=== PATIENT | female | born 1965 | race Caucasian/White ===

== ENCOUNTER 2019-08-05 11:09 | Outpatient (CLI) | payer OTHER, SELFPAY ==
--- NOTE | ~2019-08-05 | US_ITS ---
EXAMINATION: US right upper quadrant EXAM DATE: 08/05/2019 11:34 INDICATION: Right upper quadrant pain. TECHNIQUE: Multiple grayscale and Doppler images of the abdomen right upper quadrant were obtained (b y a technologist who performed the scan) and subsequently reviewed. Comparison is made to prior exami nation from 03/17/2013. FINDINGS: The pancreatic head and body are normal in appearance. The pancreatic tail is not visualized. The l iver has normal echogenicity and contour. There are no focal liver lesions identified. There is no evidence of intrahepatic biliary duct dilation. Portal venous flow was seen in the hepatopedal, nor mal direction and has normal Doppler waveform. No right-sided hydronephrosis. Common bile duct measures 7 mm, which minimally dilated. The gallbladder wall is normal in thickness, with expected amount of distention. No sonographic evidence of pericholecystic fluid. There is no cholelithiases. Technologist performing exam reports patient did not demonstrate sonographic Zhang's sign. Please note that this sign is less reliable in patients who have received pain medication. IMPRESSION: 1. Minimally dilated common bile duct without cholelithiasis or choledocholithiasis identified.. Reviewed, dictated and finalized at location A. IMPRESSION: 1. Minimally dilated common bile duct without cholelithiasis or choledocholith iasis identified..
== END 2019-08-05 11:10 | disposition home or self-care (01) ==
PROVIDERS: PCP Family Medicine; Visit Provider Family Medicine
DX: R10.11 Right upper quadrant pain (principal)
CPT/HCPCS: 76705

== ENCOUNTER 2020-02-05 18:48 | Emergency (ER) | payer OTHER, SELFPAY ==
--- NOTE | ~2020-02-05 | XR_ITS ---
EXAMINATION: XR tibia fibula LT 2V DATE: 02/05/2020 19:52 INDICATION: Left lower leg pain. TECHNIQUE: 2 views of left tibia and fibula were obtained. COMPARISON: None. FINDINGS: There is varus angulation at the knee. There are changes of anterior cruciate ligament alexis nstruction. No fracture. There is moderate left knee osteoarthritis. IMPRESSION: 1. Moderate left knee osteoarthritis. Reviewed, dictated and finalized at location A.
--- NOTE | ~2020-02-05 | XR_ITS ---
EXAMINATION: XR knee LT min 4V DATE: 02/05/2020 19:51 INDICATION: Left leg pain. TECHNIQUE: 4 views of left knee were obtained. COMPARISON: None. FINDINGS: Bone alignment is normal. No fracture. There are changes of anterior cruciate ligament alexis nstruction. There is moderate osteoarthritis of medial compartment and mild osteoarthritis of lateral and patellofemoral compartments. No knee joint effusion. IMPRESSION: 1. Moderate left knee osteoarthritis. Reviewed, dictated and finalized at location A.
[2020-02-05 18:49] VITALS: BP 131/68; PULSE 87; RESP 17; TEMP 36.7; O2SAT 100
--- NOTE | 2020-02-05 19:03 | ED.LOWEXIN ---
HPI - Extremity Injury (Lower) General Chief Complaint: Extremity Injury, Lower Stated Complaint: r/o dvt Time Seen by Provider: 02/05/20 19:03 Source: patient Mode of arrival: ambulatory Limitations: no limitations History of Present Illness HPI Narrative: Patient is a 54-year-old female who presents for evaluation of left leg pain. Patient reports a 6-week history of worsening left leg pain, versus intermittent in nature in the back of her left calf, now has become chronic. Patient states she feels as if she is having daily cramping and charley horse type pain. She denies fall or injury. No redness or swelling. No history of blood clot. No recent long car or air travel. She denies fever, chest pain, shortness of breath. She denies history of cancer or coagulopathy. Patient was referred to this emergency department by her primary care physician for an ultrasound. Related Data Home Medications Medication Instructions Recorded Confirmed aripiprazole mg 02/05/20 02/05/20 escitalopram oxalate mg 02/05/20 lamotrigine 02/05/20 Allergies Allergy/AdvReac Type Severity Reaction Status Date / Time No Known Allergies Allergy Verified 02/05/20 18:48 Review of Systems Review of Systems: Narrative: CONSTITUTIONAL: Denies fever, chills, or sweats. ENT: Denies rhinorrhea, congestion, sore throat, or otalgia. CARDIOVASCULAR: Denies chest pain, palpitations, or edema. RESPIRATORY: Denies cough or dyspnea. GASTROINTESTINAL: Denies abdominal pain, nausea, vomiting, or diarrhea. GENITOURINARY: Denies dysuria or hematuria. SKIN: Denies rash or itching. MUSCULOSKELETAL: Denies back pain, joint pain, reports left leg pain NEUROLOGIC: Denies headache, numbness, or weakness. [facility] Past Medical History Medical History Hyperlipidemia Social History Social History (Updated 02/05/20 @ 19:33 by Aury Naylor MD) Smoking status: Never smoker Alcohol intake: current Alcohol use details: social Substance use: current Gender identity (if verbalized by the patient): Female Exam Narrative: Exam Narrative: GENERAL: Awake, alert, conversant HEAD: Normocephalic, atraumatic. EYES: PERRLA and EOMI. ENT: Nares clear, no rhinorrhea or epistaxis. Mucous membranes moist. NECK: Supple. CHEST: No respiratory distress, breathing even and non labored HEART: Regular rate, sinus rhythm ABDOMEN:Non distended, non tender EXTREMITIES: Normal range of motion. No edema. Tenderness to palpation of the left calf. No edema, erythema or warmth. Full range of motion of the left knee and left ankle without limitation. Intact distal sensation. Compartment is soft. No deformity. SKIN: Warm, dry, no rash. NEURO:No focal deficits. Alert and oriented x3 Course Vital Signs Vital signs: Vital Signs Temperature 36.7 C 02/05/20 18:49 Pulse Rate 87 02/05/20 18:49 Respiratory Rate 17 02/05/20 18:49 Blood Pressure 131/68 02/05/20 18:49 Pulse Oximetry 100 02/05/20 18:49 Temperature 36.2 C L 02/05/20 20:46 Pulse Rate 76 02/05/20 20:46 Respiratory Rate 16 02/05/20 20:46 Blood Pressure 129/74 02/05/20 20:46 Pulse Oximetry 100 02/05/20 20:46 MDM - Extremity Injury (Lower) MDM Narrative Medical decision making narrative: Patient is a 54-year-old that presenting for evaluation of left calf pain over the past month. At the time of assessment, patient is neurovascularly intact, pain is reproducible with palpation of the left calf. No mass felt. No evidence of cellulitis. No edema or erythema. No evidence of deformity. Full range of motion in the knee and ankle. Obtained blood work which is reassuring, no elevation in d-dimer that be suggestive of a DVT. It seems more musculoskeletal in etiology, I do feel that patient should have a ultrasound, thus we will schedule for the morning. After shared decision-making occurred, patient opted for no anticoagul
[2020-02-05 19:45] LABS: Basophils Absolute Auto 0.1 K/mm3 (0.0-0.1); Basophils Percent Auto 1.2 % (0.2-1.2); Eosinophils Absolute Auto 0.2 K/mm3 (0-0.3); Eosinophils Percent Auto 3.2 % (0-4.4); Hematocrit 42.1 % (37.0-47.0); Immature Granulocyte Absolute 0.01 K/mm3 (0.00-0.031); Immature Granulocyte Percent A 0.2 % (0-0.5); Lymphocytes Absolute Auto 1.81 K/mm3 (0.9-3.2); Lymphocytes Percent Auto 36.3 % (18.3-44.2); Mean Corpuscular HGB Conc 33.3 g/dl (32-36); Mean Corpuscular Volume 93.3 fl (80-100); Mean Platelet Volume 10.8 fl (7.4-10.4); Monocytes Absolute Auto 0.4 K/mm3 (0.1-0.6); Monocytes Percent Auto 7.4 % (2.6-8.5); Neutrophils Absolute Auto 2.6 K/mm3 (1.3-6.7); Neutrophils Percent Auto 51.7 % (45.5-73.1); Platelet Count Result 190 k/mm3 (150-375); Red Blood Count 4.51 M/mm3 (4.2-5.4); Red Cell Distribution Width 12.5 % (11.5-14.5)
[2020-02-05 19:57] LABS: Anion Gap 7 mmol/L (8-16); Blood Urea Nitrogen 12 mg/dL (7-17); Calcium 9.5 mg/dL (8.4-10.2); Carbon Dioxide 26 mmol/L (22-30); Chloride 105 mmol/L (98-107); Estimated CRCL calculation 72 ml/min; Estimated Glomerular Filt Rate > 60; Glucose 105 mg/dL (65-105); Potassium 3.9 mmol/L (3.4-5.0); Prothrombin Time 12.6 Seconds (11.1-14.7); Sodium 138 mmol/L (137-145)
[2020-02-05 19:58] LABS: Partial Thromboplastin Time 30.9 SECONDS (22.3-36.8)
[2020-02-05 20:01] LABS: D Dimer 0.34 ug/mL (<0.48)
[2020-02-05 20:46] VITALS: BP 129/74; PULSE 76; RESP 16; TEMP 36.2; O2SAT 100
== END 2020-02-05 20:48 | disposition home or self-care (01) ==
PROVIDERS: Emergency Provider Emergency Medicine; PCP Family Medicine
DX: M79.605 Pain in left leg (principal); E78.5 Hyperlipidemia, unspecified
CPT/HCPCS: 36415; 73564; 73590; 80048; 85025; 85380; 85610; 85730; 97110; 97140; 99284

== ENCOUNTER 2020-02-06 07:45 | Outpatient (CLI) | payer OTHER, SELFPAY ==
--- NOTE | ~2020-02-06 | US_ITS ---
EXAMINATION:US venous doppler LE LT INDICATION:Left calf pain TECHNIQUE: Multiple grayscale, color flow and Doppler images of the left lower extremity deep venous systems were obtained and reviewed. COMPARISON:No prior studies for comparison. FINDINGS: The common femoral, superficial femoral and popliteal veins demonstrate normal respiratory variation, augmentation and compressibility. Color flow is also seen within the posterior tibial, pe roneal, greater saphenous and profunda veins. IMPRESSION: 1: No lower extremity deep venous thrombosis. Reviewed, dictated and finalized at location B.
== END 2020-02-06 07:46 | disposition home or self-care (01) ==
LOC: ANHIMG 07:46
PROVIDERS: Visit Provider Family Medicine
DX: M79.662 Pain in left lower leg (principal)
CPT/HCPCS: 93971

== ENCOUNTER 2020-03-10 16:00 | Outpatient (RCR) | payer OTHER, SELFPAY ==
--- NOTE | 2020-01-28 08:55 | PTOPEVAL ---
PHYSICAL THERAPY EVALUATION AND PLAN OF CARE Thank you for referring Genna Rodriguez to [facility].? The patient is scheduled to be seen for therapy? 2x/week for 4 weeks. Please review, sign, date and return this plan of care SCOTTY. I agree with and certify that the following plan of care is medically necessary. Referring Physician Date Attending Provider: Brooke Go, MD Evaluation Outpatient Past Medical History Musculoskeletal History Hx Other Musculoskeletal Disorders Yes: left ACL reconstruction x2, menisectomy Other History Hx Other Surgeries Yes: lyme disease Diagnosis left knee pain, right hip/ groin pain Cause insidious Subjective Information Had left knee surgery (2006: Query Text:As Reported By Patient/ ACL and meniscal repair, 2010: Family ACL resconstruction and menisectomy) and states that the left LE never fully recovered stating that the muscle continues to be atrophied. She feels as though she cannot exercise well because of pain and fatige of left leg. Would like to be able to use the elliptical or boot camp type classes. She really enjoys dancing and feels limited in dancing. Has right hip/groin pain for ~ 1 year. She did therapy about 4-5 months ago that did not feel very helpful but the pain has subsided alot. She is seeing an orthopedic physician in February for right hip. Since she did therapy before without success, Genna is concerned that doing therapy now will aggravate the hip; therefore, she would like to hold on hip treatment until she meets with orthopedic physician. Left Knee(s) Reported Pain Level 3 Pain Description Aching Pain Frequency Chronic,Intermittent Lowest Pain Intensity 2 Greatest Pain Intensity 7 Pain Aggravating Factors Prolonged Position,Sitting, Stair Climbing,Walking Pain Score Pain Score 3: Self Report Lower Extremity Range of Motion Knee Range o
--- NOTE | 2020-02-25 13:14 | PTOPEVAL ---
PHYSICAL THERAPY PLAN OF CARE UPDATE AND PROGRESS REPORT Thank you for referring Genna Rodriguez to [facility].? The patient is scheduled to be seen for therapy? 2x/week for 2-4 weeks. Please review, sign, date and return this plan of care SCOTTY. I agree with and certify that the following plan of care is medically necessary. Referring Physician Date Attending Provider: Brooke Go, MD Progress Diagnosis left knee pain, right hip/ groin pain Cause insidious Subjective Information Reports that pain overall has Query Text:As Reported By Patient/ been up and down depending on Family activity level. There has been some progress in building some strength. Self Report Pain Assessment Left Knee(s) Reported Pain Level 2 Pain Frequency Chronic,Intermittent Pain Aggravating Factors Sitting,Stair Climbing,Walking Knee Range of Motion Left Knee Flexion Range of Motion - Active 135 Knee Extension Range of Motion - Active -11 Hip Strength Right Hip Flexion Strength 5 Normal Hip Extension Strength 4+ Good + Hip Abduction Strength 4+ Good + Left Hip Flexion Strength 5 Normal Hip Extension Strength 4- Good - Hip Abduction Strength 4- Good - Knee Strength Right Knee Flexion Strength 5 Normal Knee Extension Strength 5 Normal Left Knee Flexion Strength 4+ Good + Knee Extension Strength 4+ Good + Timed Up and Go Test (TUG) (Seconds) 9 Assistive Devices None 5 Time Sit to Stand Time in Seconds 17.2 5 Time Sit to Stand Comments 1 month ago = 22seconds Query Text:Normative Data: If Greater Than 15 Seconds, 74% Increase Risk for Recurrent Falls Gait Assessment 2 Minute Walk Total Distance Walked (feet) 454 2 Minute Walk Gait Speed Score (feet/ 3.78 second) 2 Minute Walk Test Comments 1month ago = 429ft reports increased symptoms from a 2/10 to a 3/10 in left knee Stair Climbing Assessment Stair Climbing Assessment Stair Climbing Assistive Devices None Number of Steps Climbed (Steps) 4 Number of Repetitions (Repetitions) 1 Technique Alternating Steps Stair Climbing Direction Both Up and Down Stair Climbing Ability Independent Stair Climbing Comments poor eccentric control on left side PT Clinical Summary Genna is a 54 yo female presenting to outpatient physical therapy for chronic left knee pain and leg weakness. Genna crispin
--- NOTE | 2020-03-01 11:35 | PCPTNOTE ---
Patient called & cancelled at 11:20 (appointment start time at 11:00) stating that she was not able to attend her appointment because she was with a family member in the hospital. She will be at her appointment no Sunday, 03/03.
--- NOTE | 2020-03-10 16:41 | PTOPEVAL ---
PHYSICAL THERAPY PLAN OF CARE UPDATE AND PROGRESS REPORT Thank you for referring Genna Rodriguez to [facility].? The patient is scheduled to be seen for therapy? 2x/week for 3 weeks. Please review, sign, date and return this plan of care SCOTTY. I agree with and certify that the following plan of care is medically necessary. Referring Physician Date Attending Provider: Brooke Go, Progress Diagnosis left knee pain, right hip/ groin pain Cause insidious Subjective Information Continues to have pain in the Query Text:As Reported By Patient/ left knee. States that her Family exercises are going well, but this last week she did not do them every day. Self Report Pain Assessment Left Knee(s) Reported Pain Level 2 Pain Description Aching Pain Score Pain Score 2: Self Report Additional Pain Score Comments . Interventions Used Interventions Used By Clinicians Exercise Lower Extremity Muscle Strength Testing Hip Strength Right Hip Flexion Strength 5 Normal Hip Extension Strength 4+ Good + Hip Abduction Strength 4+ Good + Left Hip Flexion Strength 5 Normal Hip Extension Strength 4- Good - Hip Abduction Strength 4 Good Knee Strength Right Knee Flexion Strength 5 Normal Knee Extension Strength 5 Normal Left Knee Flexion Strength 5 Normal Knee Extension Strength 4+ Good + Knee Strength Comments painful in knee with extension MMT Balance Assessment 5 Time Sit to Stand Time in Seconds 11.3 5 Time Sit to Stand Comments 2 weeks ago: 17.2seconds Query Text:Normative Data: If Greater 6 weeks ago= 22seconds Than 15 Seconds, 74% Increase Risk for Recurrent Falls Stair Climbing Assessment Stair Climbing Assessment Stair Climbing Assistive Devices None Number of Steps Climbed (Steps) 4 Number of Repetitions (Repetitions) 1 Technique Alternating Steps Stair Climbing Direction Both Up and Down Stair Climbing Ability Independent Stair Climbing Comments improved eccentric control of left quad General Exercise General Exercises Side Left,Bilateral Exercise Location knee Exercise Type Active,Resistive,Stabilization ,Stretching Exercise Description -leg press B = 100#x15 seat at Query Text:Record Sets, Reps, 4, unilateral left 50#x15 Resistance, and Position -single leg heel raises x20- with bilateral UE touch
--- NOTE | 2020-03-16 15:16 | PCPTNOTE ---
PHYSICAL THERAPY DISCHARGE NOTE Attending Provider: Brooke Go, Patient:Genna Rodriguez Date of :1965 Genna called to discontinue further therapy at this time due to her own schedule. She participated in 12 visits of physical therapy for left knee pain. Her most recent care update was completed on 03/10/2020. She will be discharged at this time. The goals were partially met. Thank you for referring this patient to [facility]. Please review, sign, date and return this discharge summary SCOTTY. I have been updated about the patient's current status and I agree with discharge from the above service at this time. Referring Physician Date
== END 2020-04-12 10:51 | disposition home or self-care (01) ==
LOC: ANHPT 16:00
PROVIDERS: PCP Family Medicine; Visit Provider Family Medicine
DX: M79.10 Myalgia, unspecified site (principal)
CPT/HCPCS: 97014; 97110; 97140; 97161; G0283

== ENCOUNTER 2020-09-20 09:21 | Outpatient (CLI) | payer OTHER, SELFPAY ==
--- NOTE | ~2020-09-20 | US_ITS ---
US abdomen limited INDICATION: Right upper quadrant pain PROCEDURE: Realtime right upper abdominal ultrasound. COMPARISON: No prior studies for comparison. FINDINGS: The pancreas is normal without focal mass or pancreatic ductal dilation. Liver echotexture is normal without focal mass or intrahepatic biliary dilatation. There is normal directional flow i n the portal vein. The gallbladder is normal without stones, gallbladder wall thickening or pericholecystic fluid. Comm on bile duct measures 3 mm. No sonographic Zhang's sign. Right renal echotexture is unremarkable. IMPRESSION: 1: Normal limited abdominal ultrasound. Reviewed, dictated and finalized at location A.
== END 2020-09-20 09:22 | disposition home or self-care (01) ==
PROVIDERS: Visit Provider Family Medicine
DX: R10.11 Right upper quadrant pain (principal)
CPT/HCPCS: 76705

== ENCOUNTER 2020-09-25 10:29 | Emergency (ER) | payer OTHER, SELFPAY ==
--- NOTE | ~2020-09-25 | US_ITS ---
EXAMINATION:US venous doppler LE LT INDICATION:Left calf tenderness TECHNIQUE: Multiple grayscale, color flow and Doppler images of the left lower extremity deep venous systems were obtained and reviewed. COMPARISON:02/06/2020 FINDINGS: The common femoral, superficial femoral and popliteal veins demonstrate normal respiratory variation, augmentation and compressibility. Color flow is also seen within the posterior tibial, pe roneal, greater saphenous and profunda veins. IMPRESSION: 1: No lower extremity deep venous thrombosis. Reviewed, dictated and finalized at location A.
[2020-09-25 10:38] VITALS: BP 130/71; PULSE 72; RESP 18; TEMP 36.9; O2SAT 100
--- NOTE | 2020-09-25 11:05 | ED.GENADULT ---
HPI - General Adult General Chief complaint: Extremity Problem,Nontraumatic Stated complaint: L leg pain Time Seen by Provider: 09/25/20 10:38 Source: patient Mode of arrival: ambulatory Limitations: no limitations History of Present Illness HPI narrative: Patient presents for evaluation of calf pain on the left side. She states she woke from sleep at 0400 this morning reporting difficulty sleeping. At that time she experienced a charley horse in the posterior left calf. She states she has had pain in the affected area since that time. Pain radiates up the left lower extremity. No descriptive quality or numerical rating of the pain. No trauma to the affected area. She has not taken anything for pain. She is not on exogenous estrogen. She does not smoke. No surgeries within the last 4 weeks. No personal history of VTE. Related Data Home Medications Medication Instructions Recorded Confirmed aripiprazole mg 02/05/20 02/05/20 escitalopram oxalate mg 02/05/20 lamotrigine 02/05/20 mirtazapine 09/25/20 Allergies Allergy/AdvReac Type Severity Reaction Status Date / Time No Known Allergies Allergy Verified 09/25/20 10:42 Review of Systems Review of Systems: Narrative: CONSTITUTIONAL: Denies fever, chills, or sweats. EYES: Denies visual changes, redness, or discharge. ENT: Denies rhinorrhea, congestion, sore throat, or otalgia. CARDIOVASCULAR: Denies chest pain, palpitations, or edema. RESPIRATORY: Denies cough or dyspnea. GASTROINTESTINAL: Denies abdominal pain, nausea, vomiting, or diarrhea. GENITOURINARY: Denies dysuria or hematuria. SKIN: Denies rash or itching. MUSCULOSKELETAL: Reports left calf pain. Denies back pain, joint pain NEUROLOGIC: Denies headache, numbness, dizziness, or weakness. PSYCHIATRIC: Denies anxiety or depression. [facility] Past Medical History Medical History (Updated 09/25/20 @ 12:31 by Vincenzo Bales, BARBARA, ALYSON) Bipolar disorder Hyperlipidemia Surgical History Surgical History History of hysterectomy History of repair of ACL History of tonsillectomy Family History Family History Mother Arthritis Father Hyperlipidemia Social History Social History Smoking status: Never smoker Alcohol intake: current Substance use: current Gender identity (if verbalized by the patient): Female Exam Narrative: Exam Narrative: GENERAL: Well-appearing, well-nourished, and in no acute distress. HEAD: Normocephalic, atraumatic. EYES: PERRLA and EOMI. ENT: Nares clear, no rhinorrhea or epistaxis. Mucous membranes moist. Oropharynx without tonsillar hypertrophy exudate or other lesions. Bilateral TMs pearly fernandes nonbulging NECK: Supple. No adenopathy or masses. No carotid bruits or JVD CHEST: Clear to auscultation. No respiratory distress. No wheezes rales or rhonchi HEART: Regular rate and rhythm. No murmur heard. Normal peripheral pulses. ABDOMEN: Soft, nontender, nondistended, normal active bowel sounds. EXTREMITIES: Normal range of motion. No edema. Posterior calf tenderness in the left side. Positive Homans' sign on the left side. SKIN: Warm, dry, no rash. NEURO: No focal deficits. Alert and oriented x3. PSYCH: Normal mood and affect. Course Course Emergency Course: This is a 55-year-old female that presented with complaints of left calf pain and muscle cramping. Electrolytes were normal. Venous Doppler negative for DVT. Mild elevation of CPK but no evidence of rhabdomyolysis. She states she is extremely sensitive to muscle relaxers. She has tolerated tramadol in the past. Be reasonable to give her a small quantity of these and have her follow-up outpatient for further evaluation and treatment. Patient agreement plan of care. Vital Signs Vital signs: Vital Signs Temperature 36.9 C
[2020-09-25 12:02] LABS: Basophils Absolute Auto 0.1 K/mm3 (0.0-0.1); Basophils Percent Auto 1.2 % (0.2-1.2); Eosinophils Absolute Auto 0.1 K/mm3 (0-0.3); Eosinophils Percent Auto 3.1 % (0-4.4); Hematocrit 45.8 % (37.0-47.0); Hemoglobin 14.8 g/dL (12.0-15.0); Immature Granulocyte Absolute 0.01 K/mm3 (0.00-0.031); Immature Granulocyte Percent A 0.2 % (0-0.5); Immature Platelet Fraction Pct 4.2 % (0.9-11.2); Lymphocytes Absolute Auto 1.48 K/mm3 (0.9-3.2); Lymphocytes Percent Auto 35.5 % (18.3-44.2); Mean Corpuscular HGB Conc 32.3 g/dl (32-36); Mean Corpuscular Volume 92.7 fl (80-100); Mean Platelet Volume 10.7 fl (7.4-10.4); Monocytes Absolute Auto 0.4 K/mm3 (0.1-0.6); Monocytes Percent Auto 8.6 % (2.6-8.5); Neutrophils Absolute Auto 2.1 K/mm3 (1.3-6.7); Neutrophils Percent Auto 51.4 % (45.5-73.1); Platelet Count Result 203 k/mm3 (150-375); Red Blood Count 4.94 M/mm3 (4.2-5.4); Red Cell Distribution Width 13.3 % (11.5-14.5); White Blood Count 4.2 K/mm3 (4.5-10.0)
[2020-09-25 12:10] LABS: INR 0.9; Partial Thromboplastin Time 25.7 SECONDS (22.3-36.8); Prothrombin Time 12.5 Seconds (11.1-14.7)
[2020-09-25 12:13] LABS: Alanine Aminotransferase 27 U/L (4-35); Albumin Level 4.2 g/dL (3.5-5.1); Alkaline Phosphatase 94 U/L (38-126); Anion Gap 3 mmol/L (8-16); Aspartate Amino Transferase 34 U/L (14-36); Bilirubin,Total 0.2 mg/dL (0.2-1.3); Blood Urea Nitrogen 18 mg/dL (7-17); Calcium 9.5 mg/dL (8.4-10.2); Carbon Dioxide 30 mmol/L (22-30); Chloride 108 mmol/L (98-107); Estimated CRCL calculation 64 ml/min; Estimated Glomerular Filt Rate > 60; Glucose 97 mg/dL (65-105); Magnesium 2.2 mg/dL (1.6-2.3); Potassium 4.3 mmol/L (3.4-5.0); Sodium 141 mmol/L (137-145)
[2020-09-25 12:19] LABS: Creatine Kinase 171 U/L (30-135)
[2020-09-25 13:01] VITALS: BP 139/71; PULSE 64; RESP 18; O2SAT 99
== END 2020-09-25 13:02 | disposition home or self-care (01) ==
PROVIDERS: Emergency Provider Nurse Practitioner; PCP Family Medicine
DX: M79.18 Myalgia, other site (principal); F31.9 Bipolar disorder, unspecified
CPT/HCPCS: 36415; 80053; 82550; 83735; 85025; 85055; 85610; 85730; 93971; 99284

== ENCOUNTER 2021-09-17 08:51 | Emergency (ER) | payer OTHER, SELFPAY ==
--- NOTE | ~2021-09-17 | US_ITS ---
US venous doppler [facility] DATE: 09/17/2021 09:48 INDICATION: Left lower extremity pain TECHNIQUE: Real-time and color flow imaging and Doppler analysis of the veins of the left lower extre mity COMPARISON: 09/25/2020 venous duplex examination of the left lower extremity; examination was reported negative FINDINGS: The left greater saphenous vein is patent. There is spontaneous and phasic flow and normal augmentation and color flow signal and normal compression of the deep veins of the left lower extremi ty. IMPRESSION: Negative examination; no evidence of deep venous thrombosis of left lower extremity Reviewed, dictated and finalized at Location [facility]. Reviewed, dictated and finalized at location A.
[2021-09-17 08:59] VITALS: BP 139/102; PULSE 85; RESP 18; TEMP 36.7; O2SAT 98
--- NOTE | 2021-09-17 09:01 | ED.EXTPRO ---
HPI - Extremity Problem General Chief complaint: Extremity Problem,Nontraumatic Stated complaint: leg pain, swelling Time Seen by Provider: 09/17/21 08:54 Source: patient Mode of arrival: ambulatory Limitations: no limitations History of Present Illness HPI Narrative: 56-year-old female presented to the emergency department for evaluation of left calf pain. Patient states that she does have history of bilateral ankle swelling. Patient states over the last few days she has had bilateral ankle swelling that worsens towards the end of the day. Patient states last night she was having a charley horse in her left calf. Patient denies any associated chest pain or shortness of breath. Patient states that she is unsure if she has ever had a history of a DVT. Patient denies taking any blood thinners currently. Patient denies any history of blood thinners. 2 previous ultrasounds of the left lower extremity show no evidence of DVT. Patient denies any increased activity. Patient denies any falls or injuries. Patient reports she does not drink a lot of water. Patient does have a history of ACL repair on the left. Related Data Home Medications Medication Instructions Recorded Confirmed aripiprazole mg 02/05/20 02/05/20 escitalopram oxalate mg 02/05/20 lamotrigine 02/05/20 mirtazapine 09/25/20 Allergies Allergy/AdvReac Type Severity Reaction Status Date / Time trazodone Allergy Hives Verified 09/17/21 09:11 Review of Systems Review of Systems: CONSTITUTIONAL: Denies fever, chills, or sweats. EYES: Denies visual changes, redness, or discharge. ENT: Denies rhinorrhea, congestion, sore throat, or otalgia. CARDIOVASCULAR: Denies chest pain, palpitations, or edema. RESPIRATORY: Denies cough or dyspnea. GASTROINTESTINAL: Denies abdominal pain, nausea, vomiting, or diarrhea. GENITOURINARY: Denies dysuria or hematuria. SKIN: Denies rash or itching. MUSCULOSKELETAL: Denies back pain, joint pain, or myalgia. NEUROLOGIC: Denies headache, numbness, or weakness. [facility] Past Medical History Medical History (Updated 09/17/21 @ 10:02 by Devan Sterling MD) Bipolar disorder Hyperlipidemia Surgical History Surgical History History of hysterectomy History of repair of ACL History of tonsillectomy Family History Family History Mother Arthritis Father Hyperlipidemia Social History Social History Smoking status: Never smoker Alcohol intake: current Alcohol use details: social Substance use: current Gender identity (if verbalized by the patient): Female Exam Narrative: APPEARANCE: Well appearing, no pain, no distress, well-nourished. HEAD: normocephalic, atraumatic. EYES: PERRLA/EOMI, conjunctivae clear. THROAT: Pharynx clear, no exudate. NECK: Supple. No adenopathy, no masses. RESPIRATORY: Airway patent, respirations nonlabored. Clear to auscultation bilaterally, no rales, rhonchi, wheezing. CARDIOVASCULAR: Regular rate and rhythm without murmurs rubs or gallops. ABDOMINAL: Soft, nontender, nondistended, normal bowel sounds MUSCULOSKELETAL: Moves all extremities. No pitting edema bilaterally. Patient does report left calf tenderness to palpation. Patient does have some NEURO: Alert. Cranial nerves II through XII intact. Good gait. Good coordination SKIN: Warm, dry. Normal Color. No ecchymosis or erythema. No appearance of cellulitis. Course Course Emergency Course: Ultrasound was negative for DVT. Leg has no pitting edema. No evidence of cellulitis. Patient was encouraged to drink plenty of fluids and have close follow-up with her primary care physician. Patient was comfortable with the plan for discharge and close follow-up. Vital Signs Vital signs: Vital Signs Temperature 98.0 F 09/17/21 08:59 Pulse Rate 85
--- NOTE | 2021-09-17 09:33 | PC.NURSE ---
pt to US via stretcher at this time.
[2021-09-17 10:06] VITALS: PULSE 77; RESP 18; O2SAT 99
== END 2021-09-17 10:07 | disposition home or self-care (01) ==
PROVIDERS: Emergency Provider Emergency Medicine
DX: M79.662 Pain in left lower leg (principal); F31.9 Bipolar disorder, unspecified; E78.5 Hyperlipidemia, unspecified
CPT/HCPCS: 93971; 99284

== ENCOUNTER 2023-04-18 09:39 | Outpatient (CLI) | payer OTHER, SELFPAY ==
--- NOTE | ~2023-04-18 | NM_ITS ---
EXAMINATION: NM elaina stress w perfusion DATE: 04/18/2023 12:58 INDICATION: Dyspnea. TECHNIQUE: Rest images were obtained following intravenous administration of 9.2 mCi Tc99m tetrofosmi n (Myoview). The patient was infused intravenously with Lexiscan (regadenoson). Then, 29.6 mCi Tc99m tetrofosmin (Myoview) was administered intravenously, and stress images were obtained. Data was recon structed into short axis and horizontal and vertical long axis SPECT images. Gated SPECT images were also obtained. COMPARISON: None. FINDINGS: There is no definite reversible or fixed perfusion abnormality to suggest ischemia or infar ction. There is no segmental wall motion abnormality. Left ventricular ejection fraction measures > 70%. IMPRESSION: 1. No definite ischemia or infarct. 2. Normal left ventricular ejection fraction measuring >70%. Reviewed, dictated and finalized at location A. NSED HOME INSPECTOR
--- NOTE | 2023-04-18 10:01 | ECHO_ITS ---
Patient Info Name: Genna Rodriguez Age: 57 years : 1965 Gender: Female Ht: 64 in Wt: 220 lbs BSA: 2.17 m2 HR: 71 bpm BP: 139 / 91 mmHg Heart Rhythm: Sinus Rhythm Technical Quality: Good Exam Date: 04/18/2023 10:07 AM Exam Location: Echo Lab Patient Status: Outpatient Admit Date: 04/18/2023 Staff Ordering Physician: Ty Diaz DO Air Breaker Operator: Renee Gonzalez RDCS Attending Provider: Ty Diaz DO Referring Physician: Joe JONES; Exam Type: CA echo doppler color flow Study Info Indications - dyspnea Complete two-dimensional, color flow and Doppler transthoracic echocardiogram is performed. Summary 1. Complete two-dimensional, color flow and Doppler transthoracic echocardiogram is performed. 2. Left ventricular chamber dimension is normal. 3. Left ventricular systolic function is normal, estimated at 60-65%. 4. The left ventricular diastolic function is abnormal. 5. E/e' 11 is mildly elevated. 6. Left atrial chamber dimension is mildly enlarged. 7. There is mild aortic valve sclerosis. 8. There is mild mitral valve regurgitation. 9. There is mild tricuspid valve regurgitation. 10. No pulmonary hypertension, estimated pulmonary arterial systolic pressure is 28 mmHg. Left Ventricle E/e' 11 is mildly elevated. Left ventricular chamber dimension is normal. Left ventricular systolic function is normal, estimated at 60-65%. The left ventricular diastolic function is abnormal. Right Ventricle Right ventricular systolic function is normal and with normal TAPSE 2.9 cm. Right ventricular chamber dimension is normal. Left Atria Left atrial chamber dimension is mildly enlarged. Right Atria Right atrial chamber dimension is normal. Aortic Valve The aortic valve is trileaflet. There is mild aortic valve sclerosis. There is no aortic valve stenosis. There is no aortic valve regurgitation. Pulmonic Valve There is no pulmonic regurgitation. Mitral Valve There is no mitral valve stenosis. There is mild mitral valve regurgitation. Tricuspid Valve There is mild tricuspid valve regurgitation. No pulmonary hypertension, estimated pulmonary arterial systolic pressure is 28 mmHg. Pericardium/Pleural There is no pericardial effusion. Inferior Vena Cava Normal inferior vena cava with >50% collapse upon inspiration consistent with normal right atrial pressure, 5 mmHg. Aorta The aortic root size at the sinus of Valsalva is normal. Left Ventricular Outflow Tract Name Value Normal LVOT 2D LVOT Diameter 2.1 cm LVOT Doppler LVOT Peak Gradient 3 mmHg LVOT Mean Gradient 2 mmHg LVOT VTI 21 cm LVOT VTI/AV VTI Ratio 0.6 LVOT Stroke Volume 71 ml LVOT CO 4.4 l/min LVOT CI 2.0 l/min/m2 Pulmonic Valve Name Value Normal RVOT Doppler
--- NOTE | 2023-04-18 10:48 | EST_ITS ---
Patient Info Name: Genna Rodriguez Age: 57 years : 1965 Gender: Female Ht: 64 in Wt: 220 lbs BSA: 2.17 m2 HR: 56 bpm BP: 125 / 74 mmHg Heart Rhythm: Left Bundle Branch Block Exam Date: 04/18/2023 11:26 AM Exam Location: Echo Lab Patient Status: Outpatient Admit Date: 04/18/2023 Staff Ordering Physician: Ty Diaz DO Attending Provider: Ty Diaz DO Exercise Technologist: Shu Tellez CT Exam Type: CA stress elaina w NM Study Info Indications R06.09 - Other forms of dyspnea I44.7 - Left bundle-branch block, unspecified A regadenoson stress test was performed. Summary 1. 1. Inconclusive lexiscan stress test for ischemic ST changes by ECG criteria due to baseline LBBB. 2. 2. Stable hemodynamics throughout the test. 3. 3. Nuclear scan to follow and will be reported separately. Please correlate with it. 4. 4. Patient informed of the above results. Protocol: Lexiscan Stress ECG Details Stage: REST Duration (min): 1 min : 6 sec HR (bpm): 57 SBP (mmHg): 125 DBP (mmHg): 74 Stage: REST Duration (min): 6 min : 49 sec HR (bpm): 58 SBP (mmHg): 125 DBP (mmHg): 74 Stage: STAGE 1 Duration (min): 0 min : 59 sec HR (bpm): 83 SBP (mmHg): 139 DBP (mmHg): 82 Stage: RECOVERY Duration (min): 1 min : 0 sec HR (bpm): 94 SBP (mmHg): 139 DBP (mmHg): 82 Stage: RECOVERY Duration (min): 2 min : 0 sec HR (bpm): 85 SBP (mmHg): 139 DBP (mmHg): 82 Stage: RECOVERY Duration (min): 3 min : 0 sec HR (bpm): 83 SBP (mmHg): 139 DBP (mmHg): 82 Stage: RECOVERY Duration (min): 3 min : 32 sec HR (bpm): 78 SBP (mmHg): 112 DBP (mmHg): 66 Rest HR: 58 bpm Peak HR: 94 bpm Rest Sys BP: 125 mmHg Peak Sys BP: 139 mmHg Max Pred HR: 162 bpm % Max Pred HR: 58 % Target HR: 138 bpm Max RPP: 13,066 bpm*mmHg Termination Reason: Completed protocol Cardiac Symptoms: Shortness of breath Total Time: 1 min : 0 sec Rest Amaya BP: 74 mmHg Peak Amaya BP: 82 mmHg Total Dose: 0.4 mg Resting ECG Sinus bradycardia, LBBB. Stress ECG No ST changes. Arrhythmias None. Report Signatures
== END 2023-04-18 09:40 | disposition home or self-care (01) ==
LOC: ANHCARD 09:40
PROVIDERS: PCP Family Medicine; Visit Provider Internal Medicine Cardiovascular Disease
DX: R06.00 Dyspnea, unspecified (principal); I34.0 Nonrheumatic mitral (valve) insufficiency; I36.1 Nonrheumatic tricuspid (valve) insufficiency
CPT/HCPCS: 78452; 93017; 93306; A9502; J2785

== ENCOUNTER 2023-07-11 16:49 | Outpatient (CLI) | payer OTHER, SELFPAY ==
--- NOTE | ~2023-07-11 | XR_ITS ---
AP and oblique views of the right ribs Clinical History: Pain Findings: No rib fracture is seen. Osseous alignment is anatomic. Lungs are clear, without focal cons olidation or pleural effusion. Cardiomediastinal contour is within normal limits. Soft tissues are un remarkable. Impression: No rib fracture is seen. Reviewed, dictated and finalized at [facility]. 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
== END 2023-07-11 16:50 | disposition home or self-care (01) ==
LOC: ANHIMG 16:50
PROVIDERS: PCP Family Medicine; Visit Provider Physician Assistant Medical
DX: R07.81 Pleurodynia (principal); W19.XXXA Unspecified fall, initial encounter
CPT/HCPCS: 71100

== ENCOUNTER 2023-11-16 01:53 | Observation (INO) | payer OTHER, SELFPAY ==
[2023-11-16] VITALS (16 sets, daily range): BP systolic 126–164; BP diastolic 64–98; PULSE 67–91; RESP 13–26; TEMP 36.2–37.2; O2SAT 97–100; BMI 40.2
--- NOTE | ~2023-11-16 | CT_ITS ---
Non-contrast Head CT History: Altered mental status Technique: Axial non-contrast imaging of the brain was performed. Dose reduction technique was used on this scan by utilizing automated exposure control and iterative reconstruction technique. The dose -length product (DLP) was 605.33 mGy-cm. Findings: There is no evidence of intracranial hemorrhage, mass lesion, or acute infarct. Brain par enchyma appears normal. The ventricles and subarachnoid spaces are normal in size. The calvarium ap pears normal. The visualized paranasal sinuses and mastoid air cells are clear. Impression: No significant abnormality seen. Reviewed, dictated and finalized at location . Impression: No significant abnormality seen.
--- NOTE | 2023-11-16 01:57 | ECG_ITS ---
Test Date: 2023-11-16 02:03:50 Measurements Intervals [place] Rate: 87 P: 48 VT: 169 QRS: 18 QRSD: 98 T: 60 QT: 335 QTc: 405 Interpretive Statements SINUS RHYTHM NONSPECIFIC T-WAVE ABNORMALITY ABNORMAL ECG No previous ECG available for comparison Electronically Signed On 11-16-2023 07:28:14 CDT by Luis Pugh M.D.
--- NOTE | 2023-11-16 02:03 | PC.NURSE ---
Patient states that she has had a hysterectomy.
[2023-11-16 02:25] LABS: Basophils Absolute Auto 0.1 K/mm3 (0.0-0.1); Eosinophils Absolute Auto 0.1 K/mm3 (0-0.3); Eosinophils Percent Auto 1.1 % (0-4.4); Hematocrit 43.5 % (37.0-47.0); Hemoglobin 14.3 g/dL (12.0-15.0); Immature Granulocyte Absolute 0.03 K/mm3 (0.00-0.031); Immature Granulocyte Percent A 0.3 % (0-0.5); Lymphocytes Absolute Auto 2.27 K/mm3 (0.9-3.2); Lymphocytes Percent Auto 22.6 % (18.3-44.2); Mean Corpuscular HGB Conc 32.9 g/dl (32-36); Mean Corpuscular Hemoglobin 30.3 pg (26-34); Mean Corpuscular Volume 92.2 fl (80-100); Mean Platelet Volume 10.3 fl (7.4-10.4); Monocytes Absolute Auto 0.7 K/mm3 (0.1-0.6); Monocytes Percent Auto 6.6 % (2.6-8.5); Neutrophils Absolute Auto 6.9 K/mm3 (1.3-6.7); Neutrophils Percent Auto 68.4 % (45.5-73.1); Platelet Count Result 227 k/mm3 (150-375); Red Blood Count 4.72 M/mm3 (4.2-5.4); Red Cell Distribution Width 13.5 % (11.5-14.5)
[2023-11-16 02:32] LABS: Lithium 0.8 mmol/L (0.6-1.2)
--- NOTE | 2023-11-16 02:32 | PC.NURSE ---
Patient refused straight catheter for urinary sample.
[2023-11-16 02:35] LABS: Alanine Aminotransferase 65 U/L (6-35); Albumin Level 4.6 g/dL (3.5-5.1); Alkaline Phosphatase 134 U/L (38-126); Anion Gap 8 mmol/L (4-12); Aspartate Amino Transferase 58 U/L (14-36); Bilirubin,Total 0.6 mg/dL (0.2-1.3); Blood Urea Nitrogen 15 mg/dL (7-17); Calcium 9.3 mg/dL (8.4-10.2); Carbon Dioxide 23 mmol/L (22-30); Chloride 111 mmol/L (98-107); Estimated CRCL calculation 57 ml/min; Estimated Glomerular Filt Rate 51; Glucose 114 mg/dL (65-110); Lipase 110 U/L (23-300); Potassium 3.7 mmol/L (3.4-5.0); Sodium 142 mmol/L (137-145)
[2023-11-16] MEDS: ACETAMINOPHEN 500 MG TABLET 1000 MG PO (02:47)
[2023-11-16] MEDS: SODIUM CHLORIDE 0.9% IV 1,000 ML 999 ML IV CONT ×2 (03:39→05:19)
[2023-11-16 03:49] LABS: Magnesium 2.4 mg/dL (1.6-2.3)
[2023-11-16 03:56] LABS: Lactic Acid Reflex 1.6 mmol/L (0.7-2.0)
--- NOTE | 2023-11-16 03:56 | PC.NURSE ---
Patient had a brief moment where her eyes were open, but would not respond to verbal or painful stimuli. During painful stimuli patient would dry heave. Notified EDP Dr. Moctezuma who VRBO 1L NS bolus and recheck a temperature. Patient had fluid bolus started an oral temperature of 97.6. Patient became responsive again and stated that this is the first spell she has had. Patient states she feels like she is going to pass out.
[2023-11-16 04:09] LABS: Alveolar/Arterial O2 Gradient 22.8 mmHg; Base Excess ABG -4.2 mEq/l (+/-2.0); Fractional Inspired Oxygen 21 %; HCO3 ABG 18.7 mEq/l (22.0-26.0); Oxygen Content ABG 18.7 %vol (16.0-22.0); Oxygen Saturation ABG 97.4 % (95.0-100.0); Oxyhemoglobin 96.8 % THb (90.0-100.0); PCO2 ABG 28.6 mmHg (35.0-45.0); PO2 ABG 92.7 mmHg (80.0-100.0); PO2 FiO2 Ratio Arterial Blood 4.41 %; Total Hemoglobin 13.7 g/dL (12.0-18.0); pH ABG 7.433 (7.350-7.450)
[2023-11-16 04:10] LABS: Modified Allen's Test Pass; Site Drawn LEFT RADIAL
[2023-11-16] MEDS: diphenhydrAMINE HCl INJ 50 MG/ML VIAL IV PUSH (05:20)
[2023-11-16] MEDS: PROCHLORPERAZINE EDISYLATE 10 MG/2 ML VIAL IV PUSH (05:21)
[2023-11-16 06:23] LABS: Appearance Urine Clear (Clear); Bacteria Urine None Seen /hpf; Bilirubin Urine Negative (Negative); Blood Urine Negative (Negative); Color Urine Yellow (Yellow); Glucose Urine UA Negative (Negative); Hyaline Casts Urine Present /lpf; Ketones Urine Negative (Negative); Leukocyte Esterase Ur Negative LEU/UL (Negative); Need Manual Microscopic Reviewed; Nitrate Urine Negative (Negative); Protein Urine Trace mg/dL (Negative); RBC Urine 0-2 /hpf (0-2); Specific Grav Ur 1.015 (1.001-1.035); Squamous Epithelial Cell Urine None Seen /hpf (Few); WBC Urine 0-5 /hpf (0-3); pH Urine 6.5 (5.0-9.0)
[2023-11-16 06:25] LABS: Add Urine Microscopic? YES
--- NOTE | 2023-11-16 06:38 | ED.GENADULT ---
HPI - General Adult General Chief complaint: Nausea/Vomiting/Diarrhea Stated complaint: nausea/dizzy Time Seen by Provider: 11/16/23 03:45 History of Present Illness HPI narrative: patient is a 58-year-old female who presents emergency department with chief complaint of nausea vomiting. Patient reports that she had her medication changed last Sunday that reports that she has history of bipolar and reports that she was recently started on lithium after she has been on Lamictal and had a manic episode patient reports that she went from 600 mg to 1200 mg of lithium patient also reports that she typically Ambien on Sunday night patient reports that she just does not feel right feels lightheaded and dizzy the patient also reports that episodes of nausea and dry heaving the patient denies abdominal pain Related Data Home Medications Medication Instructions Recorded Confirmed escitalopram oxalate 20 mg tablet mg 02/05/20 07/23/23 lamotrigine 200 mg tablet 02/05/20 07/23/23 aripiprazole 5 mg tablet 5 mg PO DAILY 07/23/23 07/23/23 Allergies Allergy/AdvReac Type Severity Reaction Status Date / Time trazodone Allergy Hives Verified 07/23/23 14:54 Review of Systems Review of Systems: A 10 system review of systems was completed on the patient and is negative except for what is stated in the HPI. Nursing and ancillary documentation was reviewed. PMFSH Past Medical History Medical History Bipolar disorder Hyperlipidemia Parkinson's disease (tremor, stiffness, slow motion, unstable posture) Vitamin D deficiency Surgical History Surgical History History of hysterectomy History of repair of ACL History of tonsillectomy Family History Family History Mother Arthritis Father Hyperlipidemia Social History Social History Smoking packs per day: 1 Smoking cigarettes per day: 20.0 Years smoked: 10 Smoking pack-years: 10.00 Smoking status: Former smoker Tobacco type: cigarettes Second hand tobacco smoke exposure: Yes Alcohol intake: current Alcohol use details: social Substance use: former Substance use type: does not use Do You Feel Safe in your Home?: Yes Lack of Transportation: No Lack of Food: Never True Current Housing: I Have Housing Concerned About Future Housing: No Difficulty Paying Gas/Electric Bills: No Difficulty Paying for Meds: No Currently Unemployed: No Education: Bachelor's Degree Difficulty w/ Childcare or Family Care: No Living arrangements: with roommate(s) Occupation/Education: occupation Gender identity (if verbalized by the patient): Female Exam Narrative: GENERAL: Well-appearing, well-nourished, and in no acute distress. HEAD: Normocephalic, atraumatic. EYES: PERRLA and EOMI. ENT: Nares clear, no rhinorrhea or epistaxis. Mucous membranes moist. NECK: Supple. CHEST: Clear to auscultation. No respiratory distress. HEART: Regular rate and rhythm. No murmur heard. Normal peripheral pulses. ABDOMEN: Soft, nontender, nondistended, normal active bowel sounds. EXTREMITIES: Normal range of motion. No edema. SKIN: Warm, dry, no rash. NEURO: No focal deficits. Alert and oriented x3. PSYCH: Normal mood and affect. Course Vital Signs Vital signs: Vital Signs Temperature 37.2 C 11/16/23 01:57 Pulse Rate 91 11/16/23 01:57 Respiratory Rate 16 11/16/23 01:57 Blood Pressure 126/64 11/16/23 01:57 Pulse Oximetry 100 11/16/23 01:57 Oxygen Delivery Room Air 11/16/23 01:57 Temperature 36.4 C 11/16/23 03:49 Pulse Rate 86 11/16/23 05:36 Respiratory Rate 25 H 11/16/23 05:36 Blood Pressure 136/74 11/16/23 05:36 Pulse Oximetry 98 11/16/23 05:36 Oxygen Delivery
[2023-11-16] MEDS: DEXTROSE 5%/0.45% SOD CHL 1,000 ML 100 ML IV CONT ×2 (06:59→16:41)
--- NOTE | 2023-11-16 07:40 | PM.IMHP ---
H&P: HPI History of Present Illness Date/Time: 11/16/23 07:40 Chief Complaint: Nausea/vomiting Narrative: 58 year old female with past medical history of bipolar and SILVA on CPAP presents to the hospital for nausea/vomiting and gait instability. Patient states that the nausea/vomiting started on Sunday, 11/05 after being started on 600 mg [place]. She was started on the [place] on 11/04 for break though hypomania on her Lamictal. A month prior to starting the [place] patient notes that she was constantly anxious, uncontrollably talking, snapping at loved ones and having worse insomnia despite the Ambien. She last saw her psychiatrist Dr. Alcantara on 11/11 where her [place] dosage was increased to 1200 mg daily. Patient is unsure why the dose was increased. Since starting the 1200 mg the patient has been having diarrhea and unsteady gait resulting in a ground level fall. She denies LOC and hitting her head. Patients last dose of lithium was 300 mg at midnight. She states she was nervous about the side effects and decided to only take a small dose. She attempted to contact her psychiatrist about possible lithium side effects and was unable to get a hold of her which resulted in her coming to the hospital. Of note patient has been on Lamictal 200 mg daily since 2013 after having an acute manic episode where she was having visual/auditory hallucinations, excessive drinking, grandiose, hypersexual, and spent over $20,000. She was hospitalized once for the manic episode. She denies visual/auditory hallucinations and suicidal/homicidal ideations at this time. She states that since being at this hospital she has not had any vomiting or diarrhea. She continues to endorse nausea, dizziness and fear of walking due to gait instability. Patient denies chest pain, shortness of breath, palpitations and changes in urination. Attempted to call patients psychiatrist Dr. Alcantara but was unable to get a hold of her office. Discussed patient case with Dr. Self. Will continue to hold the lithium at this time to see if symptoms resolve. UDS negative. Patient refused Etoh level. ED workup: CBC unremarkable. CMP with BUN/Cr 15/1.1. Mg 2.4. Slightly elevated transaminases with AST 58, ALT 65, and Alk phos 134. Tot bili WNL. Lipase WNL. [place] 0.8. Urinalysis nonconcerning for UTI. CT head with no acute intracranial process. Review of Systems Review of Systems: All systems reviewed & are unremarkable except as noted in HPI and below PMFSH Past Medical History Medical History Bipolar disorder Hyperlipidemia Parkinson's disease (tremor, stiffness, slow motion, unstable posture) Vitamin D deficiency Surgical History Surgical History History of hysterectomy History of repair of ACL History of tonsillectomy Family History Family History (Updated 11/16/23 @ 09:54 by Celine Pike RN) Mother No problems noted. Father Hyperlipidemia Arthritis Grandparent Arthritis Social History Social History Smoking packs per day: 1 Smoking cigarettes per day: 20.0 Years smoked: 10 Smoking pack-years: 10.00 Smoking status: Former smoker Tobacco type: cigarettes Second hand tobacco smoke exposure: Yes Alcohol intake: current Drinks per week: 6 Alcohol use details: social Substance use: never Substance use type: does not use Do You Feel Safe in your Home?: Yes Lack of Transportation: No Lack of Food: Never True Current Housing: I Have Housing Concerned About Future Housing: No Difficulty Paying Gas/Electric Bills: No Difficulty Paying for Meds: No Currently Unemployed: No Education: Don't Know Difficulty w/ Childcare or Family Care: No Living arrangements: with roommate(s) Occupation/Education: occupation Gender identity (if verbalized
--- NOTE | 2023-11-16 09:51 | ADMGEN ---
This patient, Genna Rodriguez, was admitted to [facility] Surg Room 310-01. Patient/family oriented to hospital policies and general routines including ID bracelet, bed and alarms, visiting hours, pain management, procedures, bathroom and other care routines, personal items, smoking policy, room service/diet, and visiting hours. Information on how to activate the Rapid Response Team has been discussed. Patient/Family are encouraged to report perceived risks to care and to ask questions if they do not understand what they are told or what they should do. Report from Zina in the ER.
[2023-11-16 13:24] LABS: Amphetamine Screen Urine Negative (Negative); Barbiturate Screen Urine Negative (Negative); Benzodiazepines Screen Urine Negative (Negative); Cannabinoid Screen Urine Negative (Negative); Cocaine Screen Urine Negative (Negative); Methadone Screen Urine Negative (Negative); Opiate Screen Urine Negative (Negative); Phencyclidine Screen Urine Negative (Negative)
[2023-11-16] MEDS: ENOXAPARIN 40 MG/0.4 ML SYRINGE SUB-Q (15:03)
[2023-11-16] MEDS: ACETAMINOPHEN/ASPIRIN/CAFFEINE 250-250-65 MG TABLET 1 TABLET PO (17:02)
[2023-11-16] MEDS: ZOLPIDEM TARTRATE (*CRX) 5 MG TABLET 10 MG PO (20:37)
[2023-11-16] MEDS: lamoTRIgine 100 MG TABLET 200 MG PO (20:37)
[2023-11-17] VITALS: PULSE 93
[2023-11-17] MEDS: ONDANSETRON INJ 4 MG/2 ML VIAL IV PUSH (01:39)
[2023-11-17 02:04] VITALS: O2SAT 99
[2023-11-17 04:00] VITALS: PULSE 72
[2023-11-17 05:14] VITALS: BP 132/68; PULSE 90; RESP 12; TEMP 37.1; O2SAT 99
[2023-11-17 06:42] LABS: Alanine Aminotransferase 51 U/L (6-35); Albumin Level 3.9 g/dL (3.5-5.1); Alkaline Phosphatase 115 U/L (38-126); Anion Gap 8 mmol/L (4-12); Aspartate Amino Transferase 39 U/L (14-36); Bilirubin,Total 0.5 mg/dL (0.2-1.3); Blood Urea Nitrogen 9 mg/dL (7-17); Calcium 8.8 mg/dL (8.4-10.2); Carbon Dioxide 21 mmol/L (22-30); Chloride 111 mmol/L (98-107); Estimated CRCL calculation 78 ml/min; Estimated Glomerular Filt Rate > 60; Glucose 98 mg/dL (65-110); Potassium 3.5 mmol/L (3.4-5.0); Sodium 140 mmol/L (137-145)
[2023-11-17 06:44] LABS: Basophils Absolute Auto 0.1 K/mm3 (0.0-0.1); Basophils Percent Auto 1.6 % (0.2-1.2); Eosinophils Absolute Auto 0.3 K/mm3 (0-0.3); Hematocrit 41.9 % (37.0-47.0); Hemoglobin 13.4 g/dL (12.0-15.0); Immature Granulocyte Absolute 0.02 K/mm3 (0.00-0.031); Immature Granulocyte Percent A 0.4 % (0-0.5); Lymphocytes Percent Auto 46.5 % (18.3-44.2); Mean Corpuscular Hemoglobin 30.3 pg (26-34); Mean Corpuscular Volume 94.8 fl (80-100); Monocytes Absolute Auto 0.5 K/mm3 (0.1-0.6); Monocytes Percent Auto 8.8 % (2.6-8.5); Neutrophils Absolute Auto 2.1 K/mm3 (1.3-6.7); Neutrophils Percent Auto 37.7 % (45.5-73.1); Platelet Count Result 224 k/mm3 (150-375); Red Blood Count 4.42 M/mm3 (4.2-5.4); Red Cell Distribution Width 13.8 % (11.5-14.5); White Blood Count 5.6 K/mm3 (4.5-10.0)
[2023-11-17 06:45] LABS: Lithium 0.3 mmol/L (0.6-1.2)
[2023-11-17 08:00] VITALS: PULSE 77
[2023-11-17] MEDS: ENOXAPARIN 40 MG/0.4 ML SYRINGE SUB-Q (08:20)
--- NOTE | 2023-11-17 09:24 | PM.IMPN ---
Progress Note: A&P Assessment and Plan (1) Birdseye adverse reaction: Code(s): T43.595A - Adverse effect of other antipsychotics and neuroleptics, initial encounter Status: Acute Assessment and Plan: Newly prescribed Birdseye 600 mg on 11/04 and dose increased on 11/11 to 1200 mg. Unknown why the dose was increased. Psychiatrist Dr. Alcantara. Since starting new medication patient complains of nausea/vomiting, diarrhea and gait instability. - Head CT: No acute intracranial process - Abdominal exam benign - Birdseye level 0.3 - Monitor adverse reactions - Discussed case with Dr. Self - Continue to hold lithium - UDS negative - Patient refused Etoh draw (2) Bipolar disorder: Code(s): F31.9 - Bipolar disorder, unspecified Status: Acute Assessment and Plan: Diagnosed in 2013 after an acute manic episode. Psychiatrist is Dr. Alcantara. Patient has been on Lamictal 200 mg daily since original diagnosis. She had break through hypomania as described in the HPI which resulted in the addition of lithium to the regimen. - Continue lamictal 200 mg daily - Hold lithium 1200 mg daily (3) SILVA (obstructive sleep apnea): Code(s): G47.33 - Obstructive sleep apnea (adult) (pediatric) Status: Acute Assessment and Plan: Well controlled on CPAP. Time Spent With Patient Time with patient: 15 - 25 minutes Subjective Date/time seen: 11/17/23 09:25 Interval history: 58 year old female with past medical history of bipolar and SILVA on CPAP presents to the hospital for nausea/vomiting and gait instability. Called by nurse at 0900 that patient was upset that we continue to hold her lithium. Discussed with nurse at that time that the lithium remains on hold due to her reporting to the hospital for lithium adverse reactions. Nurse discussed this with patient and patient reported that she wanted to leave AMA due to not receiving her Birdseye. I went to patients room at that time and had an in depth discussion about the Birdseye being held due to her adverse reactions on arrival of nausea/vomiting/diarrhea and gait instability. These symptoms have since improved since stopping the Birdseye. She states understanding but wishes to return on a lower dose. Told the patient that there was a reason that her psychiatrist Dr. Alcantara increased the dose from 600mg to 1200 mg on Sunday and I am trying to get a hold of her to discuss this. I called the office yesterday and this morning with no answer. Patient states understanding that the Birdseye was the likely cause of her symptoms and continues to want to leave AMA. Discussed with patient that she is to remain on the Lamictal as prescribed and continue to hold the lithium outpatient as restarting this medications can cause return of adverse reactions. She states understanding. Discussed with patient that she will need to follow up with her psychiatrist as soon as possible in regards to her medications. Prior to leaving patient is AOx4. She denies suicidal/homicidal ideations and auditory/visual hallucinations. Final diagnosis: Birdseye Adverse Reaction, Uncontrolled Bipolar Review of Systems Review of Systems: All systems reviewed & are unremarkable except as noted in HPI and below Exam Narrative: AF HR 90 RR 12 SpO2 99 BP 132/68 General: female in no acute respiratory distress who is nontoxic appearing, standing up beside the bed and ambulating throughout room HEENT: No facial asymmetry. Chest: Normal chest rise and fall. Neuro: Patient is alert and oriented x4. Moving all extremities. Cranial nerves 2-12 are intact. Speech is clear. Psych: Normal mood and affect. Objective Data Vital Signs Vital Signs: Vital Signs - 24 hr 11/16/23 12:00 11/16/23 14:00 11/16/23 15:29 Temperature 97.8 F Pulse Rate 86 80 Respiratory Rate 16 Blood Pressure 164/78 H 139/72 Pulse Oximetry 100 Oxygen Delivery 11/16/23 16:00 11/16/23 20:00 11/16/23 21:31 Temperat
--- NOTE | 2023-11-17 09:33 | PCPTNOTE ---
Presented to third for evaluation of mobility. Nursing station states pt left AMA. No evaluation performed.
== END 2023-11-17 09:26 | disposition left against medical advice (07) ==
LOC: ANHED 06:43 → ANH3MEDSUR 07:24
PROVIDERS: Student in an Organized Health Care Education/Training Program; Admitting Provider Internal Medicine; Emergency Provider Emergency Medicine; PCP Family Medicine; Visit Provider Internal Medicine
DX: R11.2 Nausea with vomiting, unspecified (principal); R19.7 Diarrhea, unspecified; R26.89 Other abnormalities of gait and mobility; T43.595A Adverse effect of other antipsychotics and neuroleptics, initial encounter; F31.9 Bipolar disorder, unspecified; G20.A1 Parkinson's disease without dyskinesia, without mention of fluctuations; G47.33 Obstructive sleep apnea (adult) (pediatric); Z87.891 Personal history of nicotine dependence; Z79.899 Other long term (current) drug therapy
CPT/HCPCS: 36415; 36600; 70450; 80053; 80178; 80307; 81001; 82805; 83605; 83690; 83735; 85025; 93005; 96361; 96372; 96374; 96375; 99285; A9270; G0378; J0780; J1200; J1650; J2405; J7030; J7050

== ENCOUNTER 2023-12-24 10:17 | Emergency (ER) | payer OTHER, SELFPAY ==
--- NOTE | 2023-12-24 10:20 | PC.NURSE ---
1020-PATIENT VERY DEMANDING AT REGISTRATION. YELLING AT VISITORS AND OTHER PATIENTS TO STAY AWAY FROM HER UNTIL SHE HAS HER MASK ON. PATIENT VERY UNHAPPY HER BARE FEET ARE TOUCHING THE FOOT RESTS OF THE WHEELCHAIR. PATIENT STATES THAT IS FULL OF MRSA . PATIENT STATES I AM NOT SITTING IN THAT FUCKING WAITING ROOM . PATIENT'S FEET COVERED WITH SURGICAL BOOTIES PER HER REQUEST. PATIENT PROVIDED MASK PER HER REQUEST. PATIENT TAKEN TO TRIAGE #2 FOR EKG.
--- NOTE | 2023-12-24 10:29 | ECG_ITS ---
Test Date: 2023-12-24 10:31:47 Measurements Intervals [place] Rate: 84 P: 36 NH: 169 QRS: -38 QRSD: 133 T: 81 QT: 406 QTc: 483 Interpretive Statements SINUS RHYTHM POSSIBLE LEFT ATRIAL ENLARGEMENT [-0.1mV P WAVE IN V1/V2] MARKED LEFT AXIS DEVIATION [QRS AXIS < -30] LEFT BUNDLE BRANCH BLOCK [120+ ms QRS DURATION, 80+ ms Q/S IN V1/V2, 85+ ms R IN I/aVL/V5/V6] ABNORMAL ECG Compared to ECG 11/16/2023 02:03:50 LEFT BUNDLE BRANCH BLOCK IS NEWt Electronically Signed On 12-24-2023 17:12:02 CDT by Luis Pugh M.D.
[2023-12-24 10:32] VITALS: BP 120/66; PULSE 87; RESP 15; TEMP 36.8; O2SAT 98
--- NOTE | 2023-12-24 10:48 | PC.NURSE ---
Pt refusing to get blood drawn in triage, RN attempted to educate pt on importance of ordered labs. Pt still refusing at this time stating I'm not getting poked unless you have ultrasound .
[2023-12-24 11:24] VITALS: BP 149/79; PULSE 96; RESP 20; TEMP 36.4; O2SAT 100
[2023-12-24 11:37] VITALS: BP 136/79; PULSE 84; RESP 24; O2SAT 99
--- NOTE | 2023-12-24 12:13 | PC.NURSE ---
Patient refusing blood draw. States she will only allow blood draw from ultrasound.
--- NOTE | 2023-12-24 12:36 | PC.NURSE ---
Pt to the nurses station stating Im not waiting any longer, i want to sign out AMA
--- NOTE | 2023-12-24 12:41 | ED.CHESTPAIN ---
HPI - Chest Pain General Chief Complaint: Chest Pain Stated Complaint: NECK/JAW PAIN Time Seen by Provider: 12/24/23 11:54 Source: patient Mode of arrival: EMS Limitations: no limitations History of Present Illness HPI narrative: This is a 58-year-old female, with reported history of bipolar disorder, who presents to the emergency department complaining of chest pain beginning this morning. The patient provided a long story, involving frequenting several bars and becoming agitated with her partner, leading to substernal chest pain radiating to the left neck, jaw and shoulder. Initially rated her pain 7/10 that has gradually improved though still present. She states this is associated with some shortness of breath since resolved. She has no other complaints at this time. Related Data Home Medications Medication Instructions Recorded Confirmed lamotrigine 200 mg tablet 200 mg PO HS 02/05/20 11/16/23 lithium carbonate 600 mg capsule 1,200 mg PO DAILY 11/16/23 11/16/23 zolpidem 10 mg tablet 10 mg PO HS 11/16/23 11/16/23 Allergies Allergy/AdvReac Type Severity Reaction Status Date / Time trazodone Allergy Rash Verified 11/16/23 10:02 Review of Systems Review of Systems: All systems reviewed & are unremarkable except as noted in HPI and below PMFSH Past Medical History Medical History Bipolar disorder Hyperlipidemia Parkinson's disease (tremor, stiffness, slow motion, unstable posture) Vitamin D deficiency Surgical History Surgical History History of hysterectomy History of repair of ACL History of tonsillectomy Family History Family History Mother No problems noted. Father Hyperlipidemia Arthritis Grandparent Arthritis Social History Social History Smoking packs per day: 1 Smoking cigarettes per day: 20.0 Years smoked: 10 Smoking pack-years: 10.00 Smoking status: Former smoker Tobacco type: cigarettes Second hand tobacco smoke exposure: Yes Alcohol intake: current Drinks per week: 6 Alcohol use details: social Substance use: never Substance use type: does not use Do You Feel Safe in your Home?: Yes Lack of Transportation: No Lack of Food: Never True Current Housing: I Have Housing Concerned About Future Housing: No Difficulty Paying Gas/Electric Bills: No Difficulty Paying for Meds: No Currently Unemployed: No Education: Don't Know Difficulty w/ Childcare or Family Care: No Living arrangements: with roommate(s) Occupation/Education: occupation Gender identity (if verbalized by the patient): Female Spiritual care concerns: No Exam Narrative: GENERAL: Well-developed, well-nourished, and in no acute distress. HEAD: Normocephalic, atraumatic. EYES: PERRLA and EOMI. CHEST: Clear to auscultation. No respiratory distress. No wheezes rales or rhonchi HEART: Regular rate and rhythm. No murmur heard. Normal peripheral pulses. ABDOMEN: Soft, nontender, nondistended, normal active bowel sounds. EXTREMITIES: Normal range of motion. Trace bilateral lower extremity SKIN: Warm, dry, no rash. NEURO: Alert and oriented x3. No focal deficit. Moving all 4 limbs spontaneously PSYCH: Normal mood, flattened affect. Course Course Emergency Course: 12:41 - The patient is now wishing to leave against medical advice. She had initially refused blood draw without ultrasound guidance. Labs are not available. EKG not concerning for ischemia. She states she will go to [facility] for evaluation. The risks of leaving [facility], including , permanent disability and injury were discussed. The patient voiced understanding and still wishes to leave. Vital Signs Vital signs: Vital Signs Temperature 98.2 F 12/24/23 10:32
== END 2023-12-24 12:47 | disposition left against medical advice (07) ==
PROVIDERS: Emergency Provider Preventive Medicine Aerospace Medicine; PCP Family Medicine
DX: R07.9 Chest pain, unspecified (principal); I44.7 Left bundle-branch block, unspecified; F31.9 Bipolar disorder, unspecified; E78.5 Hyperlipidemia, unspecified; G20.A1 Parkinson's disease without dyskinesia, without mention of fluctuations
CPT/HCPCS: 93005; 99284

== ENCOUNTER 2023-12-25 01:32 | Observation (INO) | payer OTHER, SELFPAY ==
[2023-12-25] VITALS (25 sets, daily range): BP systolic 103–147; BP diastolic 48–74; PULSE 64–86; RESP 11–23; TEMP 36.4–37; O2SAT 96–100; BMI 38.8
--- NOTE | 2023-12-25 | ECHO_ITS ---
Patient Info Name: Genna Rodriguez Age: 58 years : 1965 Gender: Female Ht: 64 in Wt: 226 lbs BSA: 2.20 m2 HR: 70 bpm BP: 123 / 68 mmHg Heart Rhythm: Sinus Rhythm Technical Quality: Fair Exam Date: 12/25/2023 2:12 PM Exam Location: Echo Lab Patient Status: Outpatient Admit Date: 12/25/2023 Staff Ordering Physician: Ty Diaz DO Regional Sales Engineer: Maren Ortiz RDCS Attending Provider: Marcial Hewitt DO Referring Physician: Joe JONES; Exam Type: CA echo doppler color flow Study Info Indications R07.9 - Chest pain, unspecified Complete two-dimensional, color flow and Doppler transthoracic echocardiogram is performed. Summary 1. Complete two-dimensional, color flow and Doppler transthoracic echocardiogram is performed. 2. Left ventricular chamber dimension is normal. 3. Left ventricular systolic function is normal, estimated at 65-70%. 4. The left ventricular diastolic function is normal. 5. E/e' 7 is not elevated. 6. Left atrial chamber dimension is mildly enlarged. 7. No pulmonary hypertension, estimated pulmonary arterial systolic pressure is 25 mmHg. Left Ventricle E/e' 7 is not elevated. Left ventricular chamber dimension is normal. Left ventricular systolic function is normal, estimated at 65-70%. The left ventricular diastolic function is normal. Right Ventricle Right ventricular systolic function is normal and with normal TAPSE 2.2 cm. Right ventricular chamber dimension is normal. Left Atria Left atrial chamber dimension is mildly enlarged. Right Atria Right atrial chamber dimension is normal. Aortic Valve The aortic valve is trileaflet. There is no aortic valve stenosis. There is no aortic valve regurgitation. Pulmonic Valve There is no pulmonic regurgitation. Mitral Valve There is no mitral valve stenosis. There is no mitral valve regurgitation. Tricuspid Valve There is no tricuspid valve regurgitation. No pulmonary hypertension, estimated pulmonary arterial systolic pressure is 25 mmHg. Pericardium/Pleural There is no pericardial effusion. Inferior Vena Cava Normal inferior vena cava with >50% collapse upon inspiration consistent with normal right atrial pressure, 5 mmHg. Aorta The aortic root size at the sinus of Valsalva is normal. Left Ventricular Outflow Tract Name Value Normal LVOT 2D LVOT Diameter 2.0 cm LVOT Doppler LVOT Peak Gradient 3 mmHg LVOT Mean Gradient 1 mmHg LVOT VTI 17 cm LVOT VTI/AV VTI Ratio 0.6 LVOT Stroke Volume 51 ml LVOT CO 3.2 l/min LVOT CI 1.4 l/min/m2 Pulmonic Valve Name Value Normal RVOT Doppler RVOT Peak Gradient 2 mmHg PV Doppler PV Peak Gradient
--- NOTE | ~2023-12-25 | XR_ITS ---
Portable chest x-ray Comparison: 07/11/2023 Clinical History: Chest pain Findings: Lungs are clear, without focal consolidation or pleural effusion. Cardiomediastinal silho uette is stable. Bones and soft tissues are unremarkable. Impression: Normal chest. Reviewed, dictated and finalized at location . Impression: Normal chest.
--- NOTE | ~2023-12-25 | US_ITS ---
EXAMINATION: US carotid duplex BI DATE: 12/26/2023 14:06 INDICATION: Dizziness. TECHNIQUE: Grayscale, color Doppler, and pulsed Doppler images of the cervical carotid arteries were obtained. The degree of vessel stenosis is placed in one of the following categories: normal, <50%, 5 0-69%, >=70% but less than near-occlusion, near-occlusion, or total occlusion. Note that percent sten osis relative to normal distal artery lumen diameter is indirectly measured from velocity measurement s as described by Mateo, et al. Radiology 2003; 229:[id number]. COMPARISON: None. FINDINGS: RIGHT: The right common carotid artery (CCA) peak systolic velocity (PSV) is 73 cm/s. The right internal car otid artery (ICA) PSV is 85 cm/s. The right ICA end-diastolic velocity (EDV) is 34 cm/s. The right IC A/CCA PSV ratio is 1.2. Grayscale and color Doppler images yield an estimate of <50% diameter reducti on from plaque in the ICA. There is antegrade flow in the right vertebral artery. LEFT: The left CCA PSV is 85 cm/s. The left ICA PSV is 103 cm/s. The left ICA EDV is 43 cm/s. The left ICA/ CCA PSV ratio is 1.2. Grayscale and color Doppler images yield an estimate of <50% diameter reduction from plaque in the ICA. There is antegrade flow in the left vertebral artery. IMPRESSION: 1. <50% stenosis in the right internal carotid artery. 2. <50% stenosis in the left internal carotid artery. Reviewed, dictated and finalized at location A.
--- NOTE | 2023-12-25 01:33 | ECG_ITS ---
Test Date: 2023-12-25 01:47:54 Measurements Intervals [place] Rate: 74 P: 32 KS: 164 QRS: 11 QRSD: 86 T: 165 QT: 418 QTc: 465 Interpretive Statements SINUS RHYTHM POSSIBLE ANTERIOR MYOCARDIAL INFARCTION , OF INDETERMINATE AGE [30 ms Q WAVE IN V3/V4, OR R < 0.2 mV IN V4] MODERATE T-WAVE ABNORMALITY, CONSIDER LATERAL ISCHEMIA [-0.1+ mV T WAVE IN I/aVL/V5/V6] Compared to ECG 12/24/2023 10:31:47 Myocardial infarct finding now present T-wave abnormality now present Possible ischemia now present Left-axis deviation no longer present Left bundle-branch block no longer present Electronically Signed On 12-25-2023 14:43:27 CDT by Dipesh Juarez M.D.
--- NOTE | 2023-12-25 01:41 | PC.NURSE ---
pt refused iv access and dstick by ems.
--- NOTE | 2023-12-25 01:41 | PC.NURSE ---
Austin Wade [phone] (spouse)
[2023-12-25] MEDS: LORazepam (*CRX) 1 MG TABLET PO (02:13)
[2023-12-25] MEDS: ASPIRIN 81 MG CHEWABLE TABLET 324 MG PO (02:13)
[2023-12-25 02:28] LABS: Add Urine Microscopic? NO; Appearance Urine Clear (Clear); Bilirubin Urine Negative (Negative); Blood Urine Negative (Negative); Color Urine Yellow (Yellow); Glucose Urine UA Negative (Negative); Ketones Urine Trace mg/dL (Negative); Leukocyte Esterase Ur Negative LEU/UL (Negative); Nitrate Urine Negative (Negative); Protein Urine Negative (Negative); Specific Grav Ur 1.026 (1.001-1.035)
--- NOTE | 2023-12-25 02:34 | PC.NURSE ---
pt refused IV.
[2023-12-25 02:45] LABS: Amphetamine Screen Urine Negative (Negative); Barbiturate Screen Urine Negative (Negative); Benzodiazepines Screen Urine Negative (Negative); Cannabinoid Screen Urine Positive (Negative); Cocaine Screen Urine Negative (Negative); Methadone Screen Urine Negative (Negative); Opiate Screen Urine Negative (Negative); Phencyclidine Screen Urine Negative (Negative)
[2023-12-25 02:46] LABS: Basophils Absolute Auto 0.1 K/mm3 (0.0-0.1); Basophils Percent Auto 1.3 % (0.2-1.2); Eosinophils Absolute Auto 0.2 K/mm3 (0-0.3); Eosinophils Percent Auto 2.7 % (0-4.4); Hematocrit 41.4 % (37.0-47.0); Hemoglobin 13.7 g/dL (12.0-15.0); Immature Granulocyte Absolute 0.01 K/mm3 (0.00-0.031); Immature Granulocyte Percent A 0.2 % (0-0.5); Lymphocytes Absolute Auto 2.34 K/mm3 (0.9-3.2); Lymphocytes Percent Auto 37.5 % (18.3-44.2); Mean Corpuscular HGB Conc 33.1 g/dl (32-36); Mean Corpuscular Hemoglobin 31.3 pg (26-34); Mean Corpuscular Volume 94.5 fl (80-100); Mean Platelet Volume 10.7 fl (7.4-10.4); Monocytes Absolute Auto 0.6 K/mm3 (0.1-0.6); Monocytes Percent Auto 9.9 % (2.6-8.5); Neutrophils Percent Auto 48.4 % (45.5-73.1); Platelet Count Result 236 k/mm3 (150-375); Red Blood Count 4.38 M/mm3 (4.2-5.4); Red Cell Distribution Width 13.6 % (11.5-14.5); White Blood Count 6.2 K/mm3 (4.5-10.0)
[2023-12-25 02:58] LABS: Alanine Aminotransferase 54 U/L (6-35); Albumin Level 4.7 g/dL (3.5-5.1); Alkaline Phosphatase 128 U/L (38-126); Anion Gap 11 mmol/L (4-12); Aspartate Amino Transferase 42 U/L (14-36); Bilirubin,Total 0.4 mg/dL (0.2-1.3); Blood Urea Nitrogen 17 mg/dL (7-17); Calcium 9.5 mg/dL (8.4-10.2); Carbon Dioxide 26 mmol/L (22-30); Chloride 105 mmol/L (98-107); Estimated CRCL calculation 63 ml/min; Estimated Glomerular Filt Rate 57; Glucose 99 mg/dL (65-110); Lipase 145 U/L (23-300); Potassium 3.5 mmol/L (3.4-5.0); Sodium 142 mmol/L (137-145)
[2023-12-25 02:59] LABS: Acetaminophen < 10 ug/mL (10-30); Ethanol < 10 mg/dL (<10); Salicylate < 1.0 mg/dL (2-20)
[2023-12-25 03:00] LABS: INR 1.1; Partial Thromboplastin Time 29.9 Seconds (22.3-36.8); Prothrombin Time 14.2 Seconds (11.1-14.7)
[2023-12-25 03:03] LABS: Influenza A QL RT-PCR Negative (Negative); Influenza B QL RT-PCR Negative (Negative); RSV RNA, RT-PCR Negative (Negative); SARS-CoV-2 RNA PCR Negative (Negative)
[2023-12-25 03:15] LABS: Troponin I 0.039 ng/mL (0.000-0.034)
--- NOTE | 2023-12-25 04:46 | ED.GENADULT ---
HPI - General Adult General Chief complaint: Chest Pain Stated complaint: chest pain Time Seen by Provider: 12/25/23 02:03 History of Present Illness HPI narrative: Patient is a 58-year-old female who presents emergency department with chief complaint of chest pain. Patient was seen in the emergency department earlier today left AMA and then went to [facility] then left AMA went to [facility] and was escorted off the property the patient initially had an EKG yesterday that showed a left bundle branch block that has subsequently changed upon arrival patient reports that she has also been feeling hopeless and is in different about the patient does report that she is not actively suicidal at this time but does have had thoughts of wanting to Related Data Home Medications Medication Instructions Recorded Confirmed lamotrigine 200 mg tablet 200 mg PO HS 02/05/20 11/16/23 lithium carbonate 600 mg capsule 1,200 mg PO DAILY 11/16/23 11/16/23 zolpidem 10 mg tablet 10 mg PO HS 11/16/23 11/16/23 Allergies Allergy/AdvReac Type Severity Reaction Status Date / Time trazodone Allergy Rash Verified 11/16/23 10:02 Review of Systems Review of Systems: A 10 system review of systems was completed on the patient and is negative except for what is stated in the HPI. Nursing and ancillary documentation was reviewed. [facility] Past Medical History Medical History Bipolar disorder Hyperlipidemia Parkinson's disease (tremor, stiffness, slow motion, unstable posture) Vitamin D deficiency Surgical History Surgical History History of hysterectomy History of repair of ACL History of tonsillectomy Family History Family History Mother No problems noted. Father Hyperlipidemia Arthritis Grandparent Arthritis Social History Social History Smoking packs per day: 1 Smoking cigarettes per day: 20.0 Years smoked: 10 Smoking pack-years: 10.00 Smoking status: Former smoker Tobacco type: cigarettes Second hand tobacco smoke exposure: Yes Alcohol intake: current Drinks per week: 6 Alcohol use details: social Substance use: never Substance use type: does not use Do You Feel Safe in your Home?: Yes Lack of Transportation: No Lack of Food: Never True Current Housing: I Have Housing Concerned About Future Housing: No Difficulty Paying Gas/Electric Bills: No Difficulty Paying for Meds: No Currently Unemployed: No Education: Don't Know Difficulty w/ Childcare or Family Care: No Living arrangements: with roommate(s) Occupation/Education: occupation Gender identity (if verbalized by the patient): Female Spiritual care concerns: No Exam Narrative: GENERAL: Well-appearing, well-nourished, and in no acute distress. HEAD: Normocephalic, atraumatic. EYES: PERRLA and EOMI. ENT: Nares clear, no rhinorrhea or epistaxis. Mucous membranes moist. NECK: Supple. CHEST: Clear to auscultation. No respiratory distress. HEART: Regular rate and rhythm. No murmur heard. Normal peripheral pulses. ABDOMEN: Soft, nontender, nondistended, normal active bowel sounds. EXTREMITIES: Normal range of motion. No edema. SKIN: Warm, dry, no rash. NEURO: No focal deficits. Alert and oriented x3. PSYCH: Depressed affect. Course Vital Signs Vital signs: Vital Signs Temperature 36.4 C 12/25/23 01:43 Pulse Rate 83 12/25/23 01:43 Respiratory Rate 18 12/25/23 01:43 Blood Pressure 129/48 L 12/25/23 01:43 Pulse Oximetry 100 12/25/23 01:43 Temperature 36.4 C 12/25/23 01:43 Pulse Rate 76 12/25/23 04:30 Respiratory Rate 23 H 12/25/23 04:30 Blood Pressure 114/65 12/25/23 04:30 Pulse Oximetry 100 08
--- NOTE | 2023-12-25 06:00 | ADMGEN ---
This patient, Genna Rodriguez, was admitted to Intensive Care Unit-4. Patient/family oriented to hospital policies and general routines including ID bracelet, bed and alarms, visiting hours, pain management, procedures, bathroom and other care routines, personal items, smoking policy, room service/diet, and visiting hours. Information on how to activate the Rapid Response Team has been discussed. Patient/Family are encouraged to report perceived risks to care and to ask questions if they do not understand what they are told or what they should do.
--- NOTE | 2023-12-25 07:58 | PC.NURSE ---
Patient refused 3 hour and [address] Curran notified. States will be at bedside to evaluate patient shortly.
[2023-12-25] MEDS: ASPIRIN 81 MG CHEWABLE TABLET PO (08:34)
[2023-12-25 10:18] LABS: Cholesterol 207 mg/dL (0-200); HDL Direct 40 mg/dL
[2023-12-25 10:24] LABS: Troponin I 0.031 ng/mL (0.000-0.034)
[2023-12-25 10:28] LABS: LDL Cholesterol Direct 123 mg/dL
--- NOTE | 2023-12-25 10:55 | PM.IMHP ---
H&P: HPI History of Present Illness Date/Time: 12/25/23 10:55 Chief Complaint: Chest Pain Narrative: Patient is a 58-year-old female with a past medical history of left bundle-branch, obstructive sleep apnea on CPAP, bipolar disorder and COVID infection in 2021. Patient reports after the COVID infection in 2021 she has significant pain in the legs and in the chest. She also reports occasional chest pain when she exerts. Patient reports that she has prediabetes and alcohol disorder. In the ED she was reporting suicidal ideation but denies any plan. During the examination patient denied any chest pain diaphoresis or shortness of breath. Patient also reports he has some psychiatric conditions for which she is taking Lamictal and Remeron. Today she had an appointment with Dr. Alcantara who is a psychiatrist. Patient also drinks alcohol but denies taking it daily. Chest x-ray today shows no significant findings. We have consulted Cardiology. [facility] Past Medical History Medical History Bipolar disorder Hyperlipidemia Parkinson's disease (tremor, stiffness, slow motion, unstable posture) Vitamin D deficiency Surgical History Surgical History History of hysterectomy History of repair of ACL History of tonsillectomy Family History Family History Mother No problems noted. Father Hyperlipidemia Arthritis Grandparent Arthritis Social History Social History Smoking packs per day: 1 Smoking cigarettes per day: 20.0 Years smoked: 10 Smoking pack-years: 10.00 Smoking status: Former smoker Tobacco type: cigarettes Second hand tobacco smoke exposure: Yes Alcohol intake: current Drinks per week: 6 Alcohol use details: social Substance use: current Substance use type: marijuana Do You Feel Safe in your Home?: No Lack of Transportation: No Lack of Food: Sometimes True Current Housing: I Have Housing Concerned About Future Housing: No Difficulty Paying Gas/Electric Bills: No Difficulty Paying for Meds: No Currently Unemployed: No Education: High School Diploma/GED Difficulty w/ Childcare or Family Care: No Living arrangements: with roommate(s) Occupation/Education: occupation Gender identity (if verbalized by the patient): Female Spiritual care concerns: No Meds Home Medications and Allergies Home Medications Medication Instructions Recorded Confirmed Type lamotrigine 200 mg tablet 200 mg PO HS 02/05/20 12/25/23 History clonazepam 0.5 mg tablet 0.5 mg PO DAILY PRN Anxiety 12/25/23 12/25/23 History lurasidone 120 mg tablet 120 mg PO HS 12/25/23 12/25/23 History Allergies Allergy/AdvReac Type Severity Reaction Status Date / Time trazodone Allergy Rash Verified 11/16/23 10:02 Vital Signs Vital Signs - 24 hr 12/25/23 01:43 12/25/23 02:30 12/25/23 02:30 Temperature 97.6 F Pulse Rate 83 83 Respiratory Rate 18 Blood Pressure 129/48 L Pulse Oximetry 100 100 Oxygen Delivery Room Air 12/25/23 02:29 12/25/23 02:30 12/25/23 02:45 Temperature Pulse Rate 75 74 73 Respiratory Rate 14 19 16 Blood Pressure 113/61 119/70 115/71 Pulse Oximetry 99 100 96 Oxygen Delivery 12/25/23 03:00 12/25/23 03:15 12/25/23 03:30 Temperature Pulse Rate 75 73 71 Respiratory Rate 13 13 11 L Blood Pressure 114/65 112/60 109/67 Pulse Oximetry 98 96 97 Oxygen Delivery 12/25/23 03:45 12/25/23 04:00 12/25/23 04:15 Temperature Pulse Rate 66 72 76 Respiratory Rate 11 L 12 13 Blood Pressure 119/70 113/68 103/57 L Pulse Oximetry 100 100 99 Oxygen Delivery 12/25/23 04:30 12/25/23 05:43 12/25/23 06:00 Temperature 97.8 F Pulse Rate 76 67 70 Respiratory Rate 23 H 12 Blood Pressure 114/65
--- NOTE | 2023-12-25 12:05 | PM.CNCAR ---
Assessment and Plan Assessment and plan (1) Chest pain: Code(s): R07.9 - Chest pain, unspecified Status: Acute Assessment and Plan: Probably stress related or musculoskeletal. Obtain echo. If unremarkable, will sign off. (2) Elevated troponin: Code(s): R79.89 - Other specified abnormal findings of blood chemistry Status: Acute Assessment and Plan: Slight elevation and then normal on 2nd draw and could be related to recent alcohol intake in history. (3) LBBB (left bundle branch block): Code(s): I44.7 - Left bundle-branch block, unspecified Status: Acute Assessment and Plan: Intermittent and not new. (4) Diastolic dysfunction: Code(s): I51.89 - Other ill-defined heart diseases Status: Acute Assessment and Plan: Mild. Euvolemic. Not volume overloaded. History of Present Illness History of Present Illness Consult date/time: 12/25/23 12:05 Reason For Visit: Chest pain, Depression, Elevated troponin Narrative: 58 yr old woman who is my regular cardiology patient and a patient of Dr. Moreno presents to ER with chest pain. She has a history of LBBB, severe SILVA on CPAP (Sees PCP), bipolar disorder, covid infection in Apr 2022. She reports intermittent sharp chest pain with pain radiation to neck and shoulder and arm. In review of records shows she went to [facility] and [facility] and signed out against medical advice in last 1-2 days. She reported she was thinking about hurting herself and a sitter is in room with her. Since August 2022 she noted more KNAPP with some extra beats walking 1/2 block and fatigue. She is using CPAP for sleep. She reports fatigue. She notices swelling of legs at end of the day. Denies sob, orthopnea, PND, dizziness. Cardiovascular Procedures Echo/MUGA:: 04/18/23 Echo: EF 60-65%, diastolic dysfunction (E/e' 11), mild LAE, mild MR/TR. Electrophysiology:: 03/06/23 EKG: Sinus rhythm, LBBB. Stress Tests:: 04/18/23 Lexiscan myoview: Negative. Review of Systems Review of Systems: All systems reviewed & are unremarkable except as noted in HPI and below Constitutional: Constitutional: Reports as per HPI, Denies chills, Reports fatigue and Denies fever(s) Cardiovascular: Cardiovascular: Reports as per HPI, Reports chest pain and Reports irregular heart rhythm Respiratory: Respiratory: Reports as per HPI and Denies dyspnea Gastrointestinal: Gastrointestinal: Reports as per HPI and Denies abdominal pain Genitourinary: Genitourinary: Reports as per HPI and Denies dysuria Musculoskeletal: Musculoskeletal: Reports as per HPI Neurologic: Reports as per HPI, Denies dizziness and Denies syncope [facility] Past Medical History Medical History Bipolar disorder Hyperlipidemia Parkinson's disease (tremor, stiffness, slow motion, unstable posture) Vitamin D deficiency Surgical History Surgical History History of hysterectomy History of repair of ACL History of tonsillectomy Family History Family History Mother No problems noted. Father Hyperlipidemia Arthritis Grandparent Arthritis Social History Social History Smoking packs per day: 1 Smoking cigarettes per day: 20.0 Years smoked: 10 Smoking pack-years: 10.00 Smoking status: Former smoker Tobacco type: cigarettes Second hand tobacco smoke exposure: Yes Alcohol intake: current Drinks per week: 6 Alcohol use details: social Substance use: current Substance use type: marijuana Do You Feel Safe in your Home?: No Lack of Transportation: No Lack of Food: Sometimes True Current Housing: I Have Housing Concerned About Future Housing: No Difficulty Paying Gas/Electric Bills: No
--- NOTE | 2023-12-25 22:47 | PHAR ---
Lurasidone 120mg tablet - Take 1 tablet by mouth at bedtime. The Hospitalist ordered take 1/2 a tablet at bedtime. Verified in Pharmacy and entered as ordered by hospitalist. sent back to ICU for inpatient use.
[2023-12-25] MEDS: lamoTRIgine 100 MG TABLET 200 MG PO (23:28)
[2023-12-26] VITALS (17 sets, daily range): BP systolic 133–204; BP diastolic 71–116; PULSE 59–147; RESP 13–34; TEMP 36.6–36.8; O2SAT 94–100
[2023-12-26] MEDS: MIRTAZAPINE 7.5 MG TABLET PO ×2 (00:22→21:22)
[2023-12-26 04:11] LABS: Hemoglobin 12.8 g/dL (12.0-15.0); Mean Corpuscular Hemoglobin 30.5 pg (26-34); Mean Corpuscular Volume 95.2 fl (80-100); Mean Platelet Volume 10.7 fl (7.4-10.4); Platelet Count Result 211 k/mm3 (150-375); Red Cell Distribution Width 13.4 % (11.5-14.5); White Blood Count 4.9 K/mm3 (4.5-10.0)
[2023-12-26 04:28] LABS: Alanine Aminotransferase 40 U/L (6-35); Albumin Level 3.6 g/dL (3.5-5.1); Alkaline Phosphatase 105 U/L (38-126); Anion Gap 8 mmol/L (4-12); Aspartate Amino Transferase 31 U/L (14-36); Bilirubin,Total 0.4 mg/dL (0.2-1.3); Blood Urea Nitrogen 12 mg/dL (7-17); Calcium 8.7 mg/dL (8.4-10.2); Carbon Dioxide 22 mmol/L (22-30); Chloride 107 mmol/L (98-107); Estimated CRCL calculation 77 ml/min; Estimated Glomerular Filt Rate > 60; Glucose 124 mg/dL (65-110); Potassium 3.8 mmol/L (3.4-5.0); Sodium 137 mmol/L (137-145)
[2023-12-26 06:06] LABS: Glucose Point of Care 92 mg/dl (65-105)
[2023-12-26] MEDS: ASPIRIN 81 MG CHEWABLE TABLET PO (08:25)
--- NOTE | 2023-12-26 14:53 | PM.IMPN ---
Progress Note: A&P Assessment and Plan (1) Chest pain: Code(s): R07.9 - Chest pain, unspecified Status: Acute Assessment and Plan: Probably stress related or musculoskeletal. Obtain echo. If unremarkable, will sign off. (2) Elevated troponin: Code(s): R79.89 - Other specified abnormal findings of blood chemistry Status: Acute Assessment and Plan: Slight elevation and then normal on 2nd draw and could be related to recent alcohol intake in history. (3) LBBB (left bundle branch block): Code(s): I44.7 - Left bundle-branch block, unspecified Status: Acute Assessment and Plan: Intermittent and not new. (4) Diastolic dysfunction: Code(s): I51.89 - Other ill-defined heart diseases Status: Acute Assessment and Plan: Mild. Euvolemic. Not volume overloaded. Plan Patient is a 58-year-old female with a past medical history of left bundle-branch, obstructive sleep apnea on CPAP, bipolar disorder and COVID infection in 2021. Patient reports after the COVID infection in 2021 she has significant pain in the legs and in the chest. She also reports occasional chest pain when she exerts. Patient reports that she has prediabetes and alcohol disorder. In the ED she was reporting suicidal ideation but denies any plan. During the examination patient denied any chest pain diaphoresis or shortness of breath. Patient also reports he has some psychiatric conditions for which she is taking Lamictal and Remeron. Today she had an appointment with Dr. Alcantara who is a psychiatrist. Patient also drinks alcohol but denies taking it daily. Chest x-ray today shows no significant findings. # Chronic Dizziness vs MSK neck pain -No significant finding on carotid ultrasound. -Patient needs to follow up with the PCP in regards to managing the comorbid condition after the discharge. #Chest pain vs costochondritis vs atypical chest pain -Chest pain resolved -Troponin 0.39< 0.31 -Chest x-ray no significant findings -echocardiogram is unremarkable. -EKG shows left bundle branch block. -cardiology was consulted and concurrently signed off from the case -upon discharge patient needs to follow with Dr. Coombs the online marketing coordinator #Suicidal ideation -Patient is medically cleared. -Patient needs to be evaluated by crisis team for her suicidal ideation. -patient presented suicidal ideation but no active plan -patient should be evaluated by the crisis team tomorrow -patient is currently on 1 on 1. Subjective Date/time seen: 12/26/23 14:53 Interval history: Patient is currently doing well. Patient reports of having dizziness. Patient also complains of neck pain which is a chronic issue. Today patient underwent carotid ultrasound and shows less than 50% stenosis. Patient is medically cleared. Pending crisis team to assist with suicidal ideation. Objective Data Vital Signs Vital Signs: Vital Signs - 24 hr 12/25/23 16:00 12/25/23 16:05 12/25/23 18:00 Temperature 97.9 F Pulse Rate 74 65 72 Respiratory Rate 19 Blood Pressure 127/74 Pulse Oximetry 100 Oxygen Delivery 12/25/23 16:00 12/25/23 20:22 12/25/23 20:00 Temperature 97.9 F Pulse Rate 74 73 Respiratory Rate 19 15 Blood Pressure 147/69 H Pulse Oximetry 99 99 Oxygen Delivery Room Air Room Air 12/25/23 20:36 12/25/23 20:00 12/25/23 22:00 Temperature Pulse Rate 73 70 Respiratory Rate Blood Pressure Pulse Oximetry Oxygen Delivery Autopap 12/26/23 00:07 12/26/23 00:21 12/26/23 00:00 Temperature Pulse Rate 68 70 71 Respiratory Rate 23 H 34 H 17 Blood Pressure 141/76 H Pulse Oximetry 100 100 98 Oxygen Delivery CPAP CPAP 12/26/23 00:00 12/26/23 02:00 12/26/23 03:29 Temperature Pulse Rate 73 68 67 Respiratory Rate 16 Blood Pressure Pulse Oximetry 99 Oxygen Delivery CPAP 12/26/23 05:44 12/26/23 06:00 12/26/23 08:00 Temperature 97.9 F 98.0 F
--- NOTE | 2023-12-26 18:00 | PC.NURSE ---
After requesting that she see her dog in preparation to stay the night this evening, special permission granted from director after reviewing dogs vaccinations for the patient's dog to visit her. Roughly an hour after the visit, the patient called for the RN to come to the room. Upon arrival the patient began stating that she will be leaving tonight and refuses to be kept on a 72 hour hold as she voluntarily signed for psych placement. After educating patient on the policies regarding leaving AMA while on suicide watch, she began to get more agitated and said that we need to figure it out or she will be leaving. Pending placement/acceptance at a number of facilities at this time, see care coordination notes.
--- NOTE | 2023-12-26 18:03 | PC.NURSE ---
Spoke with Bharath with [facility] nurse to nurse background and assessment information including labs and latest vitals. He will give this information to his provider and return a call with acceptance or denial.
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
[2023-12-26] MEDS: OLANZapine 10 MG, WATER, STERILE FOR INJECTION 2.1 ML IM (20:33)
[2023-12-26] MEDS: lamoTRIgine 100 MG TABLET 200 MG PO (21:22)
[2023-12-26 22:23] LABS: Pregnancy On Board Control Positive; Urine Pregnancy Test Negative
--- NOTE | 2023-12-27 00:02 | PC.NURSE ---
This RN spoke with RN at [facility] at 2315 for nurse to nurse. RN asking about pt update, vital signs, and condition of the patient. RN at [facility] said they do have openings but due to staff the earliest they could call for acceptance is tommorow.
[2023-12-27 00:14] VITALS: BP 148/73; PULSE 65; RESP 12; TEMP 36.8; O2SAT 100
[2023-12-27] MEDS: clonazePAM (*CRX) 0.5 MG TABLET PO (00:30)
--- NOTE | 2023-12-27 00:53 | PC.NURSE ---
This RN received a call from [facility] Lamination Inspector [facility] for an update on patient condition, and recent behavior. She stated they will call back soon with the status of getting the patient a bed.
--- NOTE | 2023-12-27 00:57 | PC.NURSE ---
At the beginning of the shift this RN reported to bedside to introduce myself to the patient. The patient began to become verbally abusive asking when she can leave. Patient stated she wanted to leave AMA. Upon patient request this RN contacted charge nurse, Alyx Stephen and beam house inspector, Alka Tyson. Attempts to deescalate patient were unsuccessful. To ensure staff safety Mohan in security was present at bedside. While there the patient became physically threatening to Mohan. At 1948, Alyx Stephen instructed this RN to call 911. While I did that Arik Gandara, RN called called a ilene manuel. Pt began hitting her bedside table table, and screaming at staff. [place] and additional [place] staff members reported to bedside. Pt called PD snot nosed children who don't know what the fuck they are talking about . Pt stated all of the staff abused her rights, and she was calling her manager operational . reported to bedside and ordered 10mg of IM Zyprexa. Pt refused Zyprexa, so IV ativan was ordered instead. While flushing the pts IV it began to leak and had to be removed. Kuldeep PENG left the room at 2014. DEXTER Grijalva attempted to place IV with ultrasound. During this time the pt refused to get an IV placed. IM Zyprexa administered at 2032 and pt was assisted back to [facility]. Pt requested her partner, Austin, to be called and asked if her could come in. This RN called Austin. RN got voicemail and left a message. Austin returned call and reported to bedside with patient. At that time patient was calm but awake in bed. Later in night the patient requested medication for her restless leg syndrome. A one time dose of Klonopin was obtained and administered. Patient sitter remains at bedside. Patient is calm and cooperative at this time. Care continues.
--- NOTE | 2023-12-27 01:40 | PC.NURSE ---
This RN spoke with staff at [facility] that stated they are unable to take patient due to medical acuity and aggression.
--- NOTE | 2023-12-27 02:03 | PC.NURSE ---
This RN spoke with Anum at [facility] that stated they were unable to accept patient. She stated the doctor thinks the patient needs med psych .
[2023-12-27 04:06] VITALS: BP 159/81; PULSE 64; RESP 14; O2SAT 98
[2023-12-27 06:00] VITALS: BP 116/60; PULSE 62; RESP 16; O2SAT 98
[2023-12-27] MEDS: ASPIRIN 81 MG CHEWABLE TABLET PO (08:34)
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
[2023-12-27 20:00] VITALS: BP 147/86; PULSE 62; PULSE 88; RESP 16; RESP 20; TEMP 37.2; O2SAT 98; O2SAT 99
[2023-12-27] MEDS: lamoTRIgine 100 MG TABLET 200 MG PO (20:34)
[2023-12-27] MEDS: MIRTAZAPINE 7.5 MG TABLET PO (20:36)
--- NOTE | 2023-12-27 22:18 | PC.NURSE ---
I spoke with Ml from [facility] in regards to Genna Purcellkomal I was informed [facility] denied the patient due to their medical acuity Terrance deflected the patient due to their medical needs, stating the patient needs a trim and burr operator [facility] has no beds available [facility] needs to review the patients chart Jaelyn was paged and we are awaiting a return call
[2023-12-28 00:40] VITALS: PULSE 76; RESP 26; O2SAT 99
[2023-12-28] MEDS: ASPIRIN 81 MG CHEWABLE TABLET PO (08:42)
[2023-12-28 14:00] VITALS: BP 142/69; PULSE 85; RESP 16; TEMP 37.1; O2SAT 97
--- NOTE | 2023-12-28 17:44 | PM.IMPN ---
Progress Note: A&P Assessment and Plan (1) Chest pain: Code(s): R07.9 - Chest pain, unspecified Status: Acute (2) Elevated troponin: Code(s): R79.89 - Other specified abnormal findings of blood chemistry Status: Acute (3) LBBB (left bundle branch block): Code(s): I44.7 - Left bundle-branch block, unspecified Status: Acute (4) Diastolic dysfunction: Code(s): I51.89 - Other ill-defined heart diseases Status: Acute Assessment and Plan: Mild. Euvolemic. Not volume overloaded. Plan Patient is a 58-year-old female with a past medical history of left bundle-branch, obstructive sleep apnea on CPAP, bipolar disorder and COVID infection in 2021 presents to the ER with chest pain. Patient stated that she started having substernal chest pain radiating to the left neck jaw and shoulder. Rated at 7 x 10 in intensity associated shortness of breath. Left against medical advise on 12/24/2023. Presented back with similar complaint again on 12/25/2023. Initial EKG showed some left bundle-branch block. During her ER visit she also reported she had thoughts about wanting to . She had been admitted to the ICU for further treatment. She follows with her psychiatrist Dr. Alcantara and had been on different medications. She also drinks alcohol on a regular basis. Workup for chest pain was performed with troponin which came back 0.039 subsequent level is 0.031. EKG showed left bundle-branch block which is chronic cardiology was consulted. Chest x-ray with no significant findings. Chest pain has resolved since then. Echo was performed on 12/25/2023 which was unremarkable. Chest pain suspected to be musculoskeletal. Due to suicidal ideation crisis team has evaluated the patient. Patient has been agitated off and on verbally abusive to staff and screening. She is currently on 05/21. Plan to be getting transfer to inpatient psych facility involuntarily. DVT prophylaxis Lovenox Subjective Date/time seen: 12/28/23 17:44 Interval history: No overnight events. Patient continues to complain about multiple issues some of which are current some of which were in the past. Some about her family. Mentions she stated she would want to kill herself when she presented to the ER. Review of Systems Review of Systems: All systems reviewed & are unremarkable except as noted in HPI and below Exam Narrative: GENERAL: Well-appearing, well-nourished, and in no acute distress. HEAD: Normocephalic, atraumatic. EYES: PERRLA and EOMI. ENT: Nares clear, no rhinorrhea or epistaxis. Mucous membranes moist. NECK: Supple. CHEST: Clear to auscultation. No respiratory distress. HEART: Regular rate and rhythm. No murmur heard. Normal peripheral pulses. ABDOMEN: Soft, nontender, nondistended, normal active bowel sounds. EXTREMITIES: Normal range of motion. No edema. SKIN: Warm, dry, no rash. NEURO: No focal deficits. Alert and oriented x3. PSYCH: Depressed affect. Objective Data Vital Signs Vital Signs: Vital Signs - 24 hr 12/27/23 20:00 12/27/23 20:00 12/28/23 00:40 Temperature 98.9 F Pulse Rate 62 88 76 Respiratory Rate 16 20 26 H Blood Pressure 147/86 H Pulse Oximetry 98 99 99 Oxygen Delivery Room Air CPAP 12/28/23 07:53 12/28/23 14:00 Temperature 98.7 F Pulse Rate 85 Respiratory Rate 16 Blood Pressure 142/69 H Pulse Oximetry 97 Oxygen Delivery Room Air Intake/Output Intake/Output: Intake & Output 12/25/23 12/26/23 12/27/23 12/28/23 23:59 23:59 23:59 23:59 Intake Total 1040 1200 1440 880 Output Total 1550 Balance 1040 1200 -110 880 Meds/Results Medications: Active Medications Generic Name Dose Route Start Last Admin Trade Name Freq PRN Reason Stop Dose Admin Acetaminophen 650 mg 12/25/23 04:54 Acetaminophen 325 Mg Tablet PO Q4H PRN Mild Pain (1-3) or Fever Aspirin 81 mg 12/25/23 08:00 12/28/23 08:42 Aspirin 81 Mg Chewable Tab
--- NOTE | 2023-12-28 18:24 | PC.NURSE ---
Patient requesting her father go picking table worker her medication Abilify from the pharmacy. RN explained patient cannot take outside medications as they have to be prescribed by the hospitalist here. RN also reminded patient that she was refusing all psych medications when she was admitted. Patient's father spoke with RN at nurses station about picking up patient's medication from the pharmacy and bringing it to the hospital. RN and educational manager explained to patient's father that he cannot bring in outside medications. Patient's father said he was going to the pharmacy to see if her prescription is filled and bringing it up. Patient's father exited the unit. RN will inform night patrol inspector RN of the situation.
--- NOTE | 2023-12-28 19:32 | PC.NURSE ---
RN at bedside with patient and father. Patient is cussing profanities at father. RN asked patient to not speak in this way and explained to patient that she spoke with hospitalist georges and obtained orders.
--- NOTE | 2023-12-28 19:35 | PC.NURSE ---
Patient's father at bedside having heated discussion with patient. This RN placed call to security desk and asked that they send someone down as patient has history of violent and aggressive behavior. Father seen holding prescription medications in his hand outside of the room. He approached the desk while this RN was on the phone with the security desk. Father unhappy with medications that patient is receiving stating that the medications he has in his possession are what the psychiatrist told the patient to take when they were on the conference call. He continued to raise his voice at the nurses station stating that this RN is just like her. Asked that he stop raising his voice as there are critically ill patients in this unit and would be escorted out by security if he continued to cause a disturbance. During this occurrence, it was noted that the visitor had an active phone call on speaker and was asked to hang up the call since patient information was being discussed. Explained hospital procedures to him and that the patient cannot take medications prescribed by any provider without orders from her attending at this facility while she is in our care. Per dayshift charge rn, visitor had received this information during a previous discussion today. Visitor was given permission to say ko to the patient and then immediately leave the facility for the night. Visitor left without any further issues with prescriptions in his possession.
--- NOTE | 2023-12-28 19:50 | ECG_ITS ---
Test Date: 2023-12-25 09:55:10 Measurements Intervals [place] Rate: 65 P: 63 MS: 169 QRS: 29 QRSD: 93 T: 25 QT: 452 QTc: 472 Interpretive Statements SINUS RHYTHM POSSIBLE ANTERIOR MYOCARDIAL INFARCTION [30 ms Q WAVE IN V3/V4, OR R < 0.2 mV IN V4], OF INDETERMINATE AGE MODERATE T-WAVE ABNORMALITY, CONSIDER LATERAL ISCHEMIA [-0.1+ mV T WAVE IN I/aVL/V5/V6] INTERPRETATION BASED ON A DEFAULT AGE OF 40 YEARS Compared to ECG 12/25/2023 01:47:54 No significant changes Electronically Signed On 12-30-2023 13:19:38 CDT by Adalid Duggan M.D.
--- NOTE | 2023-12-28 19:58 | ECG_ITS ---
Test Date: 2023-12-28 19:58:48 Measurements Intervals [place] Rate: 76 P: 44 NC: 174 QRS: 10 QRSD: 86 T: 20 QT: 378 QTc: 427 Interpretive Statements SINUS RHYTHM NONSPECIFIC ST & T-WAVE ABNORMALITY Compared to ECG 12/25/2023 09:55:10 NO SIGNIFICANT CHANGES Electronically Signed On 01-01-2024 08:49:18 CDT by Dipesh Juarez M.D.
[2023-12-28 20:00] VITALS: PULSE 80; RESP 22; O2SAT 100
[2023-12-28 20:07] VITALS: BP 166/103; PULSE 80; RESP 22; TEMP 37.2; O2SAT 100
[2023-12-28] MEDS: lamoTRIgine 100 MG TABLET 200 MG PO (21:11)
[2023-12-28] MEDS: ARIPiprazole 10 MG TABLET PO (21:44)
[2023-12-28] MEDS: clonazePAM (*CRX) 0.5 MG TABLET (21:45)
[2023-12-28 22:50] VITALS: O2SAT 100
[2023-12-29 06:00] VITALS: BP 154/84; PULSE 70; RESP 20; TEMP 37.1; O2SAT 100
--- NOTE | 2023-12-29 06:29 | PC.NURSE ---
Patient wanted to have her abilify this evening, the day MD was alerted by the previous nurse and the Abilify was order but her Latuda was discontinued due to interactions. The patient stated she didnt want to stop taking her latuda because she was worried about withdrawing. I call the pharmacy to clarify this, Luis Fernando from pharmacy explained it is more of a slight discomfort than a withdrawal The evening covering physican was alerted of this and deferred to the day time MDs orders and decided to keep the Abilify and stated they will reassess in the morning. PRN Klonopin was ordered from the patients home medications. The patient was unable to sleep most of this evening, she was talkative and restless, even though she received her PRNs. the patient slept on and off from [id number] when she finally woke up. She was unhappy that she was not able to sleep and mentioned her home Ambien might help, I told her I will pass this on to the day RN.Patient also requested something to help her have a BM, I told her I will pass this on as well. Patients morning vitals are stable and she reports no chest pain or discomfort
[2023-12-29 09:01] VITALS: BP 149/68; PULSE 86; RESP 14; TEMP 36.2; O2SAT 98
[2023-12-29] MEDS: ASPIRIN 81 MG CHEWABLE TABLET PO (09:11)
[2023-12-29] MEDS: ENOXAPARIN 40 MG/0.4 ML SYRINGE SUB-Q (09:11)
[2023-12-29 09:14] VITALS: O2SAT 99
[2023-12-29] MEDS: hydrOXYzine HCL 10 MG TABLET PO (11:18)
--- NOTE | 2023-12-29 11:51 | PM.IMPN ---
Progress Note: A&P Assessment and Plan (1) Chest pain: Code(s): R07.9 - Chest pain, unspecified Status: Acute (2) Elevated troponin: Code(s): R79.89 - Other specified abnormal findings of blood chemistry Status: Acute (3) LBBB (left bundle branch block): Code(s): I44.7 - Left bundle-branch block, unspecified Status: Acute (4) Diastolic dysfunction: Code(s): I51.89 - Other ill-defined heart diseases Status: Acute Assessment and Plan: Mild. Euvolemic. Not volume overloaded. Plan Patient is a 58-year-old female with a past medical history of left bundle-branch, obstructive sleep apnea on CPAP, bipolar disorder and COVID infection in 2021 presents to the ER with chest pain. Patient stated that she started having substernal chest pain radiating to the left neck jaw and shoulder. Rated at 7 x 10 in intensity associated shortness of breath. Left against medical advise on 12/24/2023. Presented back with similar complaint again on 12/25/2023. Initial EKG showed some left bundle-branch block. During her ER visit she also reported she had thoughts about wanting to . She had been admitted to the ICU for further treatment. She follows with her psychiatrist Dr. Alcantara and had been on different medications. She also drinks alcohol on a regular basis. Workup for chest pain was performed with troponin which came back 0.039 subsequent level is 0.031. EKG showed left bundle-branch block which is chronic cardiology was consulted. Chest x-ray with no significant findings. Chest pain has resolved since then. Echo was performed on 12/25/2023 which was unremarkable. Chest pain suspected to be musculoskeletal. Due to suicidal ideation crisis team has evaluated the patient. Patient has been agitated off and on verbally abusive to staff and screening. She is currently on 05/21. Plan to be getting transfer to inpatient psych facility involuntarily. awaitign bed placement DVT prophylaxis Lovenox Subjective Date/time seen: 12/29/23 11:51 Interval history: no overnight events, no nausea, vomitign. no further chest pain. wants to start ambien and also hydroxyzine prn Review of Systems Review of Systems: All systems reviewed & are unremarkable except as noted in HPI and below Exam Narrative: GENERAL: Well-appearing, well-nourished, and in no acute distress. HEAD: Normocephalic, atraumatic. EYES: PERRLA and EOMI. ENT: Nares clear, no rhinorrhea or epistaxis. Mucous membranes moist. NECK: Supple. CHEST: Clear to auscultation. No respiratory distress. HEART: Regular rate and rhythm. No murmur heard. Normal peripheral pulses. ABDOMEN: Soft, nontender, nondistended, normal active bowel sounds. EXTREMITIES: Normal range of motion. No edema. SKIN: Warm, dry, no rash. NEURO: No focal deficits. Alert and oriented x3. PSYCH: Depressed affect. Objective Data Vital Signs Vital Signs: Vital Signs - 24 hr 12/28/23 14:00 12/28/23 20:07 12/28/23 20:00 Temperature 98.7 F 98.9 F Pulse Rate 85 80 80 Respiratory Rate 16 22 H 22 H Blood Pressure 142/69 H 166/103 H Pulse Oximetry 97 100 100 Oxygen Delivery Room Air Fraction of Inspired Oxygen 12/28/23 22:50 12/29/23 06:00 12/29/23 09:01 Temperature 98.8 F 97.2 F L Pulse Rate 70 86 Respiratory Rate 20 14 Blood Pressure 154/84 H 149/68 H Pulse Oximetry 100 100 98 Oxygen Delivery Room Air Fraction of Inspired Oxygen 12/29/23 09:14 12/29/23 08:00 Temperature Pulse Rate Respiratory Rate Blood Pressure Pulse Oximetry 99 Oxygen Delivery Room Air Room Air Fraction of Inspired Oxygen 21 Intake/Output Intake/Output: Intake & Output 12/26/23 12/27/23 12/28/23 12/29/23 23:59 23:59 23:59 23:59 Intake Total 1200 1440 1620 880 Output Total 1550 Balance 1200 -110 1620 880 Meds/Results Medications: Active Medications Generic Name Dose Route Start Last Admin Trade Name Freq PRN Maria Alejandra
[2023-12-29 13:43] VITALS: RESP 23; O2SAT 99
[2023-12-29 16:02] VITALS: BP 151/88; PULSE 81; RESP 19; O2SAT 100
--- NOTE | 2023-12-29 16:15 | PM.DS ---
DS: Admitting Diagnosis Discharge Date 12/29/2023 Admitting Diagnosis Chest pains DS: Discharge Diagnosis Discharge Diagnosis (1) Chest pain: Code(s): R07.9 - Chest pain, unspecified Status: Acute (2) Elevated troponin: Code(s): R79.89 - Other specified abnormal findings of blood chemistry Status: Acute (3) LBBB (left bundle branch block): Code(s): I44.7 - Left bundle-branch block, unspecified Status: Acute (4) Diastolic dysfunction: Code(s): I51.89 - Other ill-defined heart diseases Status: Acute DS: Summary Hospital Course Hospital Course: Patient is a 58-year-old female with a past medical history of left bundle-branch, obstructive sleep apnea on CPAP, bipolar disorder and COVID infection in 2021 presents to the ER with chest pain. Patient stated that she started having substernal chest pain radiating to the left neck jaw and shoulder. Rated at 7 x 10 in intensity associated shortness of breath. Left against medical advise on 12/24/2023. Presented back with similar complaint again on 12/25/2023. Initial EKG showed some left bundle-branch block. During her ER visit she also reported she had thoughts about wanting to . She had been admitted to the ICU for further treatment. She follows with her psychiatrist Dr. Alcantara and had been on different medications. She also drinks alcohol on a regular basis. Workup for chest pain was performed with troponin which came back 0.039 subsequent level is 0.031. EKG showed left bundle-branch block which is chronic cardiology was consulted. Chest x-ray with no significant findings. Chest pain has resolved since then. Echo was performed on 12/25/2023 which was unremarkable. Chest pain suspected to be musculoskeletal. Due to suicidal ideation crisis team has evaluated the patient. Patient has been agitated off and on verbally abusive to staff and screening. She is currently on 05/21. Plan to be getting transfer to inpatient psych facility involuntarily. However while awaiting for bed placement crisis team re evaluation and decision made to do a safety contract with patient. She will be discharged home for further management of her bipolar disorder as an outpatient basis with her psychiatrist. DVT prophylaxis Lovenox Time Spent with Patient Time attestation: Total time spent providing and/or coordinating discharge services: 40 minutes Exam Narrative: GENERAL: Well-appearing, well-nourished, and in no acute distress. HEAD: Normocephalic, atraumatic. EYES: PERRLA and EOMI. ENT: Nares clear, no rhinorrhea or epistaxis. Mucous membranes moist. NECK: Supple. CHEST: Clear to auscultation. No respiratory distress. HEART: Regular rate and rhythm. No murmur heard. Normal peripheral pulses. ABDOMEN: Soft, nontender, nondistended, normal active bowel sounds. EXTREMITIES: Normal range of motion. No edema. SKIN: Warm, dry, no rash. NEURO: No focal deficits. Alert and oriented x3. PSYCH: Depressed affect. DS: Data Imaging Radiologist's impression: ITS Impressions Chest X-Ray 12/25/23 06:00 Impression: Normal chest. Carotid Doppler Study 12/26/23 14:30 IMPRESSION: 1. <50% stenosis in the right internal carotid artery. 2. <50% stenosis in the left internal carotid artery. Discharge Plan Discharge Attending physician on discharge: Oziel Lees Consulting providers: Ty Diaz Discharging Clinician: Oziel Lees Anticipated Discharge Date/Time: 12/29/23 16:08 Patient Disposition: Home, Self-Care Activity: as tolerated Diet: regular Discharge Instructions: Follow-up with your psychiatrist with regard to your management of bipolar disorder Patient Instructions: Antibiotic Form, Angina (GEN) Stand Alone Forms: General Discharge Information Follow-up/Referrals: Ramon Moreno MD [Primary Care Provider] - 1 Week Discharge Medications: New aripiprazole [Abilify] 1
== END 2023-12-29 17:02 | disposition home or self-care (01) ==
LOC: ANHED 04:54 → ANHICU 05:43
PROVIDERS: General Practice; Internal Medicine; Admitting Provider Student in an Organized Health Care Education/Training Program; Emergency Provider Emergency Medicine; PCP Family Medicine; Visit Provider Internal Medicine
DX: R07.9 Chest pain, unspecified (principal); R45.851 Suicidal ideations; R79.89 Other specified abnormal findings of blood chemistry; I51.89 Other ill-defined heart diseases; R42 Dizziness and giddiness; F31.9 Bipolar disorder, unspecified; I65.23 Occlusion and stenosis of bilateral carotid arteries; G20.A1 Parkinson's disease without dyskinesia, without mention of fluctuations; G47.33 Obstructive sleep apnea (adult) (pediatric); E55.9 Vitamin D deficiency, unspecified; Z79.899 Other long term (current) drug therapy; Z87.891 Personal history of nicotine dependence; Z20.822 Contact with and (suspected) exposure to COVID-19
CPT/HCPCS: 36415; 71045; 80053; 80307; 81003; 81025; 82465; 82948; 83690; 83718; 83721; 84484; 85025; 85027; 85610; 85730; 87637; 93005; 93306; 93880; 96372; 99285; A9270; G0378; J1650; J2060; J2359

== ENCOUNTER 2024-01-17 04:11 | Emergency (ER) | payer OTHER, SELFPAY ==
--- NOTE | ~2024-01-17 | CT_ITS ---
CT of the Abdomen and Pelvis: Indication: Abdominal pain Technique: 2.5 mm axial scans were obtained through the abdomen and pelvis following intravenous adm inistration of 100 cc of Omnipaque 350. Dose reduction technique was used on this scan by utilizing a utomated exposure control and iterative reconstruction technique. The dose-length product (DLP) was 1 289.29 mGy-cm. Findings: Scans through the lung bases are unremarkable. There is diffuse hepatic steatosis. The spleen, pancreas, gallbladder, adrenals and kidneys are withi n normal limits. There are atherosclerotic calcifications of the aorta. No lymphadenopathy. No bowel obstruction or bowel wall thickening. There is no evidence to suggest acute appendicitis. Images through the pelvis were performed. Urinary bladder unremarkable. No pelvic mass seen. No ascit es. Impression: No acute abnormalities seen. Diffuse hepatic steatosis. Reviewed, dictated and finalized at [facility]. Impression: No acute abnormalities seen. Diffuse hepatic steatosis.
[2024-01-17] MEDS: SODIUM CHLORIDE 0.9% IV 1,000 ML 999 ML IV CONT (05:01)
[2024-01-17 05:02] VITALS: BP 166/86; PULSE 63; RESP 14; TEMP 36.7; O2SAT 99
[2024-01-17] MEDS: ONDANSETRON INJ 4 MG/2 ML VIAL IV PUSH (05:02)
[2024-01-17 05:32] LABS: Basophils Absolute Auto 0.1 K/mm3 (0.0-0.1); Basophils Percent Auto 1.7 % (0.2-1.2); Eosinophils Absolute Auto 0.2 K/mm3 (0-0.3); Eosinophils Percent Auto 3.8 % (0-4.4); Hematocrit 41.8 % (37.0-47.0); Immature Granulocyte Absolute 0.01 K/mm3 (0.00-0.031); Immature Granulocyte Percent A 0.2 % (0-0.5); Lymphocytes Absolute Auto 2.27 K/mm3 (0.9-3.2); Lymphocytes Percent Auto 47.5 % (18.3-44.2); Mean Corpuscular HGB Conc 33.5 g/dl (32-36); Mean Corpuscular Volume 92.5 fl (80-100); Mean Platelet Volume 11.1 fl (7.4-10.4); Monocytes Absolute Auto 0.6 K/mm3 (0.1-0.6); Neutrophils Absolute Auto 1.6 K/mm3 (1.3-6.7); Neutrophils Percent Auto 33.8 % (45.5-73.1); Platelet Count Result 237 k/mm3 (150-375); Red Blood Count 4.52 M/mm3 (4.2-5.4); Red Cell Distribution Width 12.8 % (11.5-14.5); White Blood Count 4.8 K/mm3 (4.5-10.0)
[2024-01-17 05:36] LABS: Alanine Aminotransferase 52 U/L (6-35); Albumin Level 4.3 g/dL (3.5-5.1); Alkaline Phosphatase 131 U/L (38-126); Anion Gap 9 mmol/L (4-12); Aspartate Amino Transferase 45 U/L (14-36); Bilirubin,Total 0.3 mg/dL (0.2-1.3); Blood Urea Nitrogen 13 mg/dL (7-17); Calcium 9.5 mg/dL (8.4-10.2); Carbon Dioxide 26 mmol/L (22-30); Chloride 103 mmol/L (98-107); Estimated CRCL calculation 88 ml/min; Estimated Glomerular Filt Rate > 60; Glucose 100 mg/dL (65-110); Potassium 3.9 mmol/L (3.4-5.0); Sodium 138 mmol/L (137-145)
[2024-01-17 05:39] LABS: Magnesium 2.2 mg/dL (1.6-2.3)
--- NOTE | 2024-01-17 06:33 | ED.GENADULT ---
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 Patient also complains of a right ear pain and joint pain. Patient states that she was seen at her primary care physician and different ED and was told nothing was wrong with her. She also states that she informed them that she was having some right ear pain and they did not even prescribe her any antibiotic for which she believes is a right ear infection. Patient states that they did not do a CT scan of her abdomen. She states that overnight she was having perfuse diarrhea and that the ED that she went to yesterday in [facility] did not even give her IV fluids. She states the abdominal pain is in the mid abdomen radiating across her abdomen bilaterally. Denies any fevers or chills at home. No additional symptoms or concerns at this time. Related Data Home Medications Medication Instructions Recorded Confirmed lamotrigine 200 mg tablet 200 mg PO HS 02/05/20 12/25/23 Allergies Allergy/AdvReac Type Severity Reaction Status Date / Time fluconazole Allergy Rash Verified 01/17/24 05:07 trazodone Allergy Rash Verified 01/17/24 05:07 Review of Systems Review of Systems: All systems are reviewed and are negative unless stated otherwise in the HPI. [facility] Past Medical History Medical History Bipolar disorder Chest pain Elevated troponin Hyperlipidemia [place] adverse reaction Parkinson's disease (tremor, stiffness, slow motion, unstable posture) Vitamin D deficiency Surgical History Surgical History History of hysterectomy History of repair of ACL History of tonsillectomy Family History Family History Mother No problems noted. Father Hyperlipidemia Arthritis Grandparent Arthritis Social History Social History Smoking packs per day: 1 Smoking cigarettes per day: 20.0 Years smoked: 10 Smoking pack-years: 10.00 Smoking status: Former smoker Tobacco type: cigarettes Second hand tobacco smoke exposure: Yes Alcohol intake: current Drinks per week: 6 Alcohol use details: social Substance use: current Substance use type: marijuana Do You Feel Safe in your Home?: Yes Lack of Transportation: No Lack of Food: Sometimes True Current Housing: I Have Housing Concerned About Future Housing: No Difficulty Paying Gas/Electric Bills: No Difficulty Paying for Meds: No Currently Unemployed: No Education: Bachelor's Degree Difficulty w/ Childcare or Family Care: No Living arrangements: with roommate(s) Occupation/Education: occupation Gender identity (if verbalized by the patient): Female Spiritual care concerns: No Exam Narrative: General: Alert, awake, afebrile, in no acute distress. HEENT: PERRL, no rhinorrhea, no post nasal drip, oropharynx clear, mild right tympanic membrane erythema. Cardiovascular: Regular rate and rhythm, no murmurs, rubs or gallops, no peripheral edema. Respiratory: Clear to auscultation bilaterally, no tachypnea, no wheezing, no rhonchi, no rubs, no respiratory distress. Abdomen: Soft, nontender, nondistended, no rebound, no guarding, no peritoneal signs. Musculoskeletal: No joint swelling or deformity, normal muscle tone. Skin: No rashes or petechia, no signs of infection. Neurological: Alert and oriented to person, place, and time. Follows all commands. No focal deficits, speech is clear and fluent. Course Vital Signs Vital signs: Vital Signs Temperature 98.1 F 01/17/24 05:02
[2024-01-17 06:42] LABS: Influenza A QL RT-PCR Negative (Negative); Influenza B QL RT-PCR Negative (Negative); SARS-CoV-2 RNA PCR Negative (Negative)
[2024-01-17] MEDS: KETOROLAC 15 MG/ML VIAL (*BKC) IV PUSH (06:46)
[2024-01-17 06:55] VITALS: BP 150/84; PULSE 64; RESP 15; TEMP 36.7; O2SAT 99
== END 2024-01-17 06:57 | disposition home or self-care (01) ==
PROVIDERS: Emergency Provider Emergency Medicine; PCP Family Medicine
DX: H66.91 Otitis media, unspecified, right ear (principal); R10.9 Unspecified abdominal pain; R19.7 Diarrhea, unspecified; Z20.822 Contact with and (suspected) exposure to COVID-19; E78.5 Hyperlipidemia, unspecified; G20.A1 Parkinson's disease without dyskinesia, without mention of fluctuations; E55.9 Vitamin D deficiency, unspecified; F31.9 Bipolar disorder, unspecified; Z90.710 Acquired absence of both cervix and uterus; Z87.891 Personal history of nicotine dependence; Z79.899 Other long term (current) drug therapy
CPT/HCPCS: 36415; 74177; 80053; 83735; 85025; 87636; 96361; 96374; 96375; 99284; J1885; J2405; J7030; Q9967

== ENCOUNTER 2024-01-31 13:36 | Emergency (ER) | payer OTHER, SELFPAY ==
[2024-01-31 13:34] VITALS: BP 153/95; PULSE 69; RESP 18; TEMP 36.2; O2SAT 97
--- NOTE | 2024-01-31 13:43 | ECG_ITS ---
Test Date: 2024-01-31 13:44:46 Measurements Intervals [place] Rate: 67 P: 54 MS: 177 QRS: 35 QRSD: 85 T: 32 QT: 423 QTc: 447 Interpretive Statements SINUS RHYTHM NONSPECIFIC ST-T WAVE ABNORMALITY- HIGH LATERAL LEADS BORDERLINE ECG Compared to ECG 12/28/2023 19:58:48 No significant changes Electronically Signed On 01-31-2024 13:47:25 CDT by Ty Diaz D.O.
[2024-01-31 14:10] LABS: Basophils Absolute Auto 0.1 K/mm3 (0.0-0.1); Eosinophils Absolute Auto 0.1 K/mm3 (0-0.3); Eosinophils Percent Auto 2.5 % (0-4.4); Hematocrit 40.6 % (37.0-47.0); Hemoglobin 13.6 g/dL (12.0-15.0); Immature Granulocyte Absolute 0.01 K/mm3 (0.00-0.031); Immature Granulocyte Percent A 0.2 % (0-0.5); Lymphocytes Absolute Auto 1.93 K/mm3 (0.9-3.2); Mean Corpuscular HGB Conc 33.5 g/dl (32-36); Mean Corpuscular Hemoglobin 30.8 pg (26-34); Mean Corpuscular Volume 91.9 fl (80-100); Mean Platelet Volume 10.6 fl (7.4-10.4); Monocytes Absolute Auto 0.4 K/mm3 (0.1-0.6); Monocytes Percent Auto 8.7 % (2.6-8.5); Neutrophils Absolute Auto 2.3 K/mm3 (1.3-6.7); Neutrophils Percent Auto 47.6 % (45.5-73.1); Platelet Count Result 212 k/mm3 (150-375); Red Blood Count 4.42 M/mm3 (4.2-5.4); Red Cell Distribution Width 12.9 % (11.5-14.5); White Blood Count 4.8 K/mm3 (4.5-10.0)
[2024-01-31 14:18] LABS: Partial Thromboplastin Time 29.5 Seconds (22.3-36.8)
[2024-01-31 14:23] LABS: Alanine Aminotransferase 48 U/L (6-35); Albumin Level 4.3 g/dL (3.5-5.1); Alkaline Phosphatase 111 U/L (38-126); Anion Gap 12 mmol/L (4-12); Aspartate Amino Transferase 45 U/L (14-36); Bilirubin,Total 0.4 mg/dL (0.2-1.3); Blood Urea Nitrogen 18 mg/dL (7-17); Calcium 9.9 mg/dL (8.4-10.2); Carbon Dioxide 23 mmol/L (22-30); Chloride 103 mmol/L (98-107); Estimated CRCL calculation 68 ml/min; Estimated Glomerular Filt Rate > 60; Glucose 96 mg/dL (65-110); Lipase 176 U/L (23-300); Potassium 3.8 mmol/L (3.4-5.0); Sodium 138 mmol/L (137-145)
[2024-01-31 14:34] LABS: Troponin I 0.024 ng/mL (0.000-0.034)
--- NOTE | 2024-01-31 14:38 | ED.CHESTPAIN ---
HPI - Chest Pain General Chief Complaint: Chest Pain Stated Complaint: cp Time Seen by Provider: 01/31/24 13:52 History of Present Illness HPI narrative: 58-year-old female with a history of bipolar disorder presenting with chest pain. States that she has had left-sided chest pain all summer. She was supposed to see her PCP yesterday but she fell asleep and miss the appointment. Today she again had chest pain some shortness of breath and lightheadedness. States that she wanted to come in to make sure she was not having a heart attack. No further complaints. Related Data Home Medications Medication Instructions Recorded Confirmed lamotrigine 200 mg tablet 200 mg PO HS 02/05/20 12/25/23 Allergies Allergy/AdvReac Type Severity Reaction Status Date / Time fluconazole Allergy Rash Verified 01/31/24 13:44 trazodone Allergy Rash Verified 01/31/24 13:44 Review of Systems Review of Systems: All systems reviewed & are unremarkable except as noted in HPI and below PMFSH Past Medical History Medical History Bipolar disorder Chest pain Elevated troponin Hyperlipidemia [place] adverse reaction Parkinson's disease (tremor, stiffness, slow motion, unstable posture) Vitamin D deficiency Surgical History Surgical History History of hysterectomy History of repair of ACL History of tonsillectomy Family History Family History Mother No problems noted. Father Hyperlipidemia Arthritis Grandparent Arthritis Social History Social History Smoking packs per day: 1 Smoking cigarettes per day: 20.0 Years smoked: 10 Smoking pack-years: 10.00 Smoking status: Former smoker Tobacco type: cigarettes Second hand tobacco smoke exposure: Yes Alcohol intake: current Drinks per week: 6 Alcohol use details: social Substance use: current Substance use type: marijuana Do You Feel Safe in your Home?: Yes Lack of Transportation: No Lack of Food: Sometimes True Current Housing: I Have Housing Concerned About Future Housing: No Difficulty Paying Gas/Electric Bills: No Difficulty Paying for Meds: No Currently Unemployed: No Education: Bachelor's Degree Difficulty w/ Childcare or Family Care: No Living arrangements: with roommate(s) Occupation/Education: occupation Gender identity (if verbalized by the patient): Female Spiritual care concerns: No Exam Narrative: GENERAL: Well-appearing, in no acute distress HEAD: Normocephalic, atraumatic. EYES: PERRLA and EOMI. ENT: Grossly unremarkable NECK: Supple. CHEST: Clear to auscultation. No respiratory distress. HEART: Regular rate and rhythm ABDOMEN: Soft, nontender, nondistended EXTREMITIES: Normal range of motion. No edema. SKIN: Warm, dry, no rash. NEURO: No focal deficits. Alert and oriented x3. PSYCH: Somewhat bizarre affect Course Vital Signs Vital signs: Vital Signs Temperature 97.2 F L 01/31/24 13:34 Pulse Rate 69 01/31/24 13:34 Respiratory Rate 18 01/31/24 13:34 Blood Pressure 153/95 H 01/31/24 13:34 Pulse Oximetry 97 01/31/24 13:34 Oxygen Delivery Room Air 01/31/24 13:34 Temperature 97.2 F L 01/31/24 13:34 Pulse Rate 69 01/31/24 13:34 Respiratory Rate 18 01/31/24 13:34 Blood Pressure 153/95 H 01/31/24 13:34 Pulse Oximetry 97 01/31/24 13:34 Oxygen Delivery Room Air 01/31/24 14:18 MDM - Chest Pain MDM Narrative Medical decision making narrative: 58-year-old female presenting with chest pain. Vitals are stable. Exam remarkable for the above. EKG per my interpretation shows normal sinus rhythm, nonspecific T-wave changes, no ST elevations or depressions. Similar to prior. Blood work is similar to prior as well. Sonny
[2024-01-31 15:06] LABS: NT Pro B Type Natriuretic Pept 295 pg/mL (19.9-100)
== END 2024-01-31 15:59 | disposition home or self-care (01) ==
PROVIDERS: Emergency Medicine; Emergency Provider Emergency Medicine; PCP Family Medicine
DX: R07.9 Chest pain, unspecified (principal); E78.5 Hyperlipidemia, unspecified; G20.A1 Parkinson's disease without dyskinesia, without mention of fluctuations; Z87.891 Personal history of nicotine dependence
CPT/HCPCS: 36415; 80053; 83690; 83880; 84484; 85025; 85610; 85730; 93005; 99284

== ENCOUNTER 2024-03-10 09:32 | Emergency (ER) | payer OTHER, SELFPAY ==
[2024-03-10 09:46] VITALS: BP 148/98; PULSE 72; RESP 16; TEMP 36.6; O2SAT 98
[2024-03-10 09:48] LABS: Glucose Point of Care 101 mg/dl (65-105)
--- NOTE | 2024-03-10 10:02 | ED.GENADULT ---
HPI - General Adult General Chief complaint: Headache Stated complaint: migraine Time Seen by Provider: 03/10/24 09:44 History of Present Illness HPI narrative: Patient eloped prior to being seen by the physician Related Data Home Medications Medication Instructions Recorded Confirmed lamotrigine 200 mg tablet 200 mg PO HS 02/05/20 12/25/23 Allergies Allergy/AdvReac Type Severity Reaction Status Date / Time fluconazole Allergy Rash Verified 03/10/24 09:33 trazodone Allergy Rash Verified 03/10/24 09:33 [facility] Past Medical History Medical History (Updated 02/14/24 @ 10:56 by Chris Saravia DO) Bipolar disorder Chest pain Elevated troponin Hyperlipidemia [place] adverse reaction Parkinson's disease (tremor, stiffness, slow motion, unstable posture) Vitamin D deficiency Surgical History Surgical History History of hysterectomy History of repair of ACL History of tonsillectomy Family History Family History Mother No problems noted. Father Hyperlipidemia Arthritis Grandparent Arthritis Social History Social History Smoking packs per day: 1 Smoking cigarettes per day: 20.0 Years smoked: 10 Smoking pack-years: 10.00 Smoking status: Former smoker Tobacco type: cigarettes Second hand tobacco smoke exposure: Yes Alcohol intake: current Drinks per week: 6 Alcohol use details: social Substance use: current Substance use type: marijuana Do You Feel Safe in your Home?: Yes Lack of Transportation: No Lack of Food: Sometimes True Current Housing: I Have Housing Concerned About Future Housing: No Difficulty Paying Gas/Electric Bills: No Difficulty Paying for Meds: No Currently Unemployed: No Education: Bachelor's Degree Difficulty w/ Childcare or Family Care: No Living arrangements: with roommate(s) Occupation/Education: occupation Gender identity (if verbalized by the patient): Female Spiritual care concerns: No Course Vital Signs Vital signs: Vital Signs Temperature 97.9 F 03/10/24 09:46 Pulse Rate 72 03/10/24 09:46 Respiratory Rate 16 03/10/24 09:46 Blood Pressure 148/98 H 03/10/24 09:46 Pulse Oximetry 98 03/10/24 09:46 Temperature 97.9 F 03/10/24 09:46 Pulse Rate 72 03/10/24 09:46 Respiratory Rate 16 03/10/24 09:46 Blood Pressure 148/98 H 03/10/24 09:46 Pulse Oximetry 98 03/10/24 09:46 Medical Decision Making Vital Signs Vital Signs: Vital Signs Temperature 97.9 F 03/10/24 09:46 Pulse Rate 72 03/10/24 09:46 Respiratory Rate 16 03/10/24 09:46 Blood Pressure 148/98 H 03/10/24 09:46 Pulse Oximetry 98 03/10/24 09:46 Temperature 97.9 F 03/10/24 09:46 Pulse Rate 72 03/10/24 09:46 Respiratory Rate 16 03/10/24 09:46 Blood Pressure 148/98 H 03/10/24 09:46 Pulse Oximetry 98 03/10/24 09:46 Lab Data Labs: Lab Results 03/10/24 Range/Units 09:46 POC Capillary Glucose 101 (65-105) mg/dl Discharge Plan Discharge Patient Disposition: Left Without Being Seen Prescriptions: No Action lamotrigine 200 mg tablet 200 mg PO HS aripiprazole [Abilify] 10 mg Tablet 10 mg PO HS Qty: 30 0RF Follow-up/Referrals: Chris Saravia DO [Primary Care Provider] -
--- NOTE | 2024-03-10 10:04 | PC.NURSE ---
Pt hit call light and this nurse went into room to attend to needs and pt stated my head is going to explode if I do not get pain medication now. I also have congestive heart failure that may worsen if my headache is not tended to. Explained to pt VS stable she has no edema noted, or increased WOB or dyspnea. Pt then said I guess I just needed someone to come and tend to me. Pt then stated I don't kow why I ever come here this place is terrible. At nurses station pt's alarms on monitor began going off and I went into room again and she had detached monitor from herself and and said I'm going home you guys took my blood sugar and it was normal so I guess nothing is wrong with me and I will drink lots of caffeine for my VICTORIA at home. Pt dressed self and ambulated out of the ED with a steady gait and was A/O x 4
== END 2024-03-10 10:17 | disposition left against medical advice (07) ==
PROVIDERS: Emergency Provider Emergency Medicine; PCP Family Medicine
DX: R51.9 Headache, unspecified (principal)
CPT/HCPCS: 82948; 99199

== ENCOUNTER 2024-03-28 13:51 | Outpatient (CLI) | payer OTHER, SELFPAY ==
--- NOTE | ~2024-03-28 | US_ITS ---
EXAMINATION: US venous doppler LE RT DATE: 03/28/2024 14:24 INDICATION: Right lower limb pain. TECHNIQUE: Grayscale ultrasound images without and with compression and Doppler ultrasound images of the right lower extremity veins were obtained. COMPARISON: None. FINDINGS: The visualized portions of right common femoral vein, profunda (deep) femoral vein, femoral vein, pop liteal vein, peroneal veins, posterior tibial veins, and greater saphenous vein outflow are patent. IMPRESSION: 1. No deep venous thrombosis. Reviewed, dictated and finalized at location A. CVOR
== END 2024-03-28 13:52 | disposition home or self-care (01) ==
PROVIDERS: PCP Family Medicine; Visit Provider Family Medicine
DX: M79.604 Pain in right leg (principal)
CPT/HCPCS: 93971

== ENCOUNTER 2024-04-05 00:11 | Emergency (ER) | payer OTHER, SELFPAY ==
--- NOTE | ~2024-04-05 | XR_ITS ---
EXAMINATION: XR chest 1V portable DATE: 04/05/2024 01:47 INDICATION: Chest pain. TECHNIQUE: A single frontal view of the chest was obtained. COMPARISON: Chest single view 12/25/2023, CT abdomen and pelvis 01/17/2024 FINDINGS: There is mild atelectasis in left lower lung zone. No pleural effusion or pneumothorax. The heart size is normal. IMPRESSION: 1. Mild atelectasis in left lower lung zone. Reviewed, dictated and finalized at location A. ICAL DEVICE SALES REPRESENTATIVE
--- NOTE | 2024-04-05 00:13 | ECG_ITS ---
Test Date: 2024-04-05 00:18:38 Measurements Intervals [place] Rate: 89 P: 22 MI: 159 QRS: -1 QRSD: 107 T: 127 QT: 375 QTc: 458 Interpretive Statements SINUS RHYTHM WITH OCCASIONAL VENTRICULAR PREMATURE COMPLEXES POSSIBLE LEFT ATRIAL ENLARGEMENT POSSIBLE INFERIOR MYOCARDIAL INFARCTION , PROBABLY OLD ANTEROSEPTAL MYOCARDIAL INFARCTION , OF INDETERMINATE AGE BORDERLINE ST-T WAVE ABNORMALITY- ANTEROLATERAL LEADS BASELINE ARTIFACT- I, II, III, AVR, AVL, AVF, V4-V6 ABNORMAL ECG Compared to ECG 02/08/2024 02:47:16 NO SIGNIFICANT CHANGE Electronically Signed On 04-05-2024 06:10:03 JEWEL STRIPPER by Ty Diaz D.O.
[2024-04-05 00:24] VITALS: BP 115/65; PULSE 85; RESP 14; TEMP 36.6; O2SAT 100
--- NOTE | 2024-04-05 00:42 | PC.NURSE ---
Throughout triage pt began twitching and throwing head back and passin gout . pt was still responsive to verbal and pain throughout entirety of event. Pt now states I have neuro problems I dont know what they are but my whole left side is messed up . Pt is now complaining of numbness and tingling all over . Pt states Everything fucking hurts help me .
--- NOTE | 2024-04-05 00:49 | PC.NURSE ---
Pt is now standing in triage bay stating im having a stroke I need help Pt is refusing to sit in wheelchair and is yelling in triage.
[2024-04-05 01:08] LABS: Basophils Absolute Auto 0.1 K/mm3 (0.0-0.1); Basophils Percent Auto 1.1 % (0.2-1.2); Eosinophils Absolute Auto 0.2 K/mm3 (0-0.3); Eosinophils Percent Auto 2.3 % (0-4.4); Hematocrit 45.9 % (37.0-47.0); Hemoglobin 15.3 g/dL (12.0-15.0); Immature Granulocyte Absolute 0.02 K/mm3 (0.00-0.031); Immature Granulocyte Percent A 0.3 % (0-0.5); Lymphocytes Absolute Auto 2.55 K/mm3 (0.9-3.2); Lymphocytes Percent Auto 38.7 % (18.3-44.2); Mean Corpuscular HGB Conc 33.3 g/dl (32-36); Mean Corpuscular Hemoglobin 30.4 pg (26-34); Mean Corpuscular Volume 91.1 fl (80-100); Mean Platelet Volume 11.2 fl (7.4-10.4); Monocytes Absolute Auto 0.4 K/mm3 (0.1-0.6); Monocytes Percent Auto 6.2 % (2.6-8.5); Neutrophils Absolute Auto 3.4 K/mm3 (1.3-6.7); Neutrophils Percent Auto 51.4 % (45.5-73.1); Platelet Count Result 238 k/mm3 (150-375); Red Blood Count 5.04 M/mm3 (4.2-5.4); Red Cell Distribution Width 13.2 % (11.5-14.5); White Blood Count 6.6 K/mm3 (4.5-10.0)
[2024-04-05 01:09] LABS: Glucose Point of Care 107 mg/dl (65-105)
--- NOTE | 2024-04-05 01:09 | PC.NURSE ---
Pt able to speak in clear language to upon being brought back to a room.
[2024-04-05 01:22] LABS: INR 1.1; Prothrombin Time 14.2 Seconds (11.1-14.7)
[2024-04-05 01:23] LABS: Partial Thromboplastin Time 29.3 Seconds (22.3-36.8)
[2024-04-05 01:25] VITALS: O2SAT 99
[2024-04-05 01:26] VITALS: BP 132/66; PULSE 78; RESP 17; O2SAT 100
[2024-04-05 01:30] LABS: Alanine Aminotransferase 57 U/L (6-35); Albumin Level 4.9 g/dL (3.5-5.1); Alkaline Phosphatase 117 U/L (38-126); Anion Gap 13 mmol/L (4-12); Aspartate Amino Transferase 49 U/L (14-36); Bilirubin,Total 0.6 mg/dL (0.2-1.3); Blood Urea Nitrogen 12 mg/dL (7-17); Calcium 10.2 mg/dL (8.4-10.2); Carbon Dioxide 22 mmol/L (22-30); Chloride 105 mmol/L (98-107); Estimated CRCL calculation 76 ml/min; Estimated Glomerular Filt Rate > 60; Glucose 120 mg/dL (65-110); Lipase 265 U/L (23-300); Potassium 3.8 mmol/L (3.4-5.0); Sodium 140 mmol/L (137-145)
[2024-04-05 01:44] LABS: Troponin I 0.037 ng/mL (0.000-0.034)
--- NOTE | 2024-04-05 01:51 | ED_ITS ---
HPI - General Adult General Chief complaint: Chest Pain Stated complaint: chest pain, feeling faint , dizziness Time Seen by Provider: 04/05/24 01:12 History of Present Illness HPI narrative: patient 58-year-old female who presents emergency department chief complaint of chest pain. Patient reports that she was arguing with her significant other reports that she has history of chest pain reports that she gets this whenever she gets an argument and also has history of congestive heart failure and has had issues with chest pain and syncope patient states she is not suicidal or eliazar icidal today the patient reports that she did have an episode where she was going to pass out in the lobby reports that she gets this way whenever she has chest pain or has a large amount of stress. Related Data Home Medications Medication Instructions Recorded Confirmed lamotrigine 200 mg tablet 200 mg PO HS 02/05/20 03/24/24 aripiprazole 10 mg tablet (Abilify) 15 mg PO HS 03/24/24 03/24/24 Allergies Allergy/AdvReac Type Severity Reaction Status Date / Time fluconazole Allergy Rash Verified 04/05/24 01:30 trazodone Allergy Rash Verified 04/05/24 01:30 Review of Systems Review of Systems: A 10 system review of systems was completed on the patient and is negative except for what is stated in the HPI. Nursing and ancillary documentation was reviewed. [facility] Past Medical History Medical History Bipolar disorder Chest pain Elevated troponin Hyperlipidemia [place] adverse reaction Parkinson's disease (tremor, stiffness, slow motion, unstable posture) Vitamin D deficiency Surgical History Surgical History History of hysterectomy History of repair of ACL History of tonsillectomy Family History Family History Mother No problems noted. Father Hyperlipidemia Arthritis Grandparent Arthritis Social History Social History Smoking packs per day: 1 Smoking cigarettes per day: 20.0 Years smoked: 10 Smoking pack-years: 10.00 Smoking status: Former smoker Tobacco type: cigarettes Second hand tobacco smoke exposure: Yes Alcohol intake: current Drinks per week: 6 Alcohol use details: social Substance use: current Substance use type: marijuana Do You Feel Safe in your Home?: Yes Lack of Transportation: No Lack of Food: Sometimes True Current Housing: I Have Housing Concerned About Future Housing: No Difficulty Paying Gas/Electric Bills: No Difficulty Paying for Meds: No Currently Unemployed: No Education: Bachelor's Degree Difficulty w/ Childcare or Family Care: No Living arrangements: with roommate(s) Occupation/Education: occupation Gender identity (if verbalized by the patient): Female Spiritual care concerns: No Exam Narrative: GENERAL: Well-appearing, well-nourished, and in no acute distress. HEAD: Normocephalic, atraumatic. EYES: PERRLA and EOMI. ENT: Nares clear, no rhinorrhea or epistaxis. Mucous membranes moist. NECK: Supple. CHEST: Clear to auscultation. No respiratory distress. HEART: Regular rate and rhythm. No murmur heard. Normal peripheral pulses. ABDOMEN: Soft, nontender, nondistended, normal active bowel sounds. EXTREMITIES: Normal range of motion. No edema. SKIN: Warm, dry, no rash. NEURO: No focal deficits. Alert and oriented x3. PSYCH: Normal mood and affect. Course Vital Signs Vital signs: Vital Signs Temperature 36.6 C 04/05/24 00:24 Pulse Rate 85 04/05/24 00:24 Respiratory Rate 14 04/05/24 00:24 Blood Pressure 115/65 04/05/24 00:24 Pulse Oximetry 100 04/05/24 00:24 Oxygen Delivery Room Air 04/05/24 00:24 Temperature 36.6 C 04/05/24 00:24 Pulse Rate 78 04/05/24 01:26 Respiratory Rate 17 04/05/24 01:26 Blood Pressure 132/66 04/05/24 01:26 Pulse Oximetry 100 04/05/24 01:26 Oxygen Delivery Room Air 04/05/24 01:25 Medical Decision Making MDM Narrative Medical decision making narrative: differential diagnosis includes ACS, electrolyte of early, syncope, anemia, EKG showed no acute ischemic changes troponin was 0.037 patient does have history of elevated troponins a 3 hour repeat troponin was to be performed on the patient the patient states she is feeling better and wanted to leave. Was explained the patient risks and benefits to leaving and the patient has chose to leave Vital Signs Vital Signs: Vital Signs Temperature 36.6 C 04/05/24 00:24 Pulse Rate 85 04/05/24 00:24 Respiratory Rate 14 04/05/24 00:24 Blood Pressure 115/65 04/05/24 00:24 Pulse Oximetry 100 04/05/24 00:24 Oxygen Delivery Room Air 04/05/24 00:24 Temperature 36.6 C 04/05/24 00:24 Pulse Rate 78 04/05/24 01:26 Respiratory Rate 17 04/05/24 01:26 Blood Pressure 132/66 04/05/24 01:26 Pulse Oximetry 100 04/05/24 01:26 Oxygen Delivery Room Air 04/05/24 01:25 Lab Data 04/05/24 01:01 04/05/24 01:01 Labs: Lab Results 04/05/24 04/05/24 Range/Units 01:01 01:06 WBC 6.6 (4.5-10.0) K/mm3 RBC 5.04 (4.2-5.4) M/mm3 Hgb 15.3 H (12.0-15.0) g/dL Hct 45.9 (37.0-47.0) % MCV 91.1 (80-100) fl MCH 30.4 (26-34) pg MCHC 33.3 (32-36) g/dl RDW 13.2 (11.5-14.5) % Plt Count 238 (150-375) k/mm3 MPV 11.2 H (7.4-10.4) fl Immature Gran % (Auto) 0.3 (0-0.5) % Neut % (Auto) 51.4 (45.5-73.1) % Lymph % (Auto) 38.7 (18.3-44.2) % [place] % (Auto) 6.2 (2.6-8.5) % Eos % (Auto) 2.3 (0-4.4) % Baso % (Auto) 1.1 (0.2-1.2) % Lymph # (Auto) 2.55 (0.9-3.2) K/mm3 [place] # (Auto) 0.4 (0.1-0.6) K/mm3 Eos # (Auto) 0.2 (0-0.3) K/mm3 Baso # (Auto) 0.1 (0.0-0.1) K/mm3 Abs Immat Gran (auto) 0.02 (0.00-0.031) K/mm3 Absolute Neuts (auto) 3.4 (1.3-6.7) K/mm3 Absolute Nucleated RBC 0.000 (0.0-0.012) K/mm3 Nucleated RBC % 0.0 (0.0-0.2) % PT 14.2 (11.1-14.7) Seconds INR 1.1 APTT 29.3 (22.3-36.8) Seconds Sodium 140 (137-145) mmol/L Potassium 3.8 (3.4-5.0) mmol/L Chloride 105 (98-107) mmol/L Carbon Dioxide 22 (22-30) mmol/L Anion Gap 13 H (4-12) mmol/L BUN 12 (7-17) mg/dL Creatinine 0.80 (0.7-1.0) mg/dL Estim Creat Clear Calc 76 ml/min Estimated GFR > 60 (59 - ) Glucose 120 H (65-110) mg/dL POC Capillary Glucose 107 H (65-105) mg/dl Calcium 10.2 (8.4-10.2) mg/dL Total Bilirubin 0.6 (0.2-1.3) mg/dL AST 49 H (14-36) U/L ALT 57 H (6-35) U/L Alkaline Phosphatase 117 (38-126) U/L Troponin I 0.037 H* (0.000-0.034) ng/mL NT-Pro-B Natriuret Pep Pending Total Protein 8.0 (6.3-8.2) g/dL Albumin 4.9 (3.5-5.1) g/dL Lipase 265 (23-300) U/L Discharge Plan Discharge Clinical Impression: Syncope, Chest pain, Elevated troponin Patient Disposition: Left Against Medical Advice Condition: Stable Prescriptions: No Action sumatriptan succinate 50 mg tablet See Rx Instructions PO .COMPLEX Qty: 30 1RF Rx Instructions: Take 1 tablet at onset of headache; if no relief may repeat 1 tablet after at least 2 hours; max = 4 tabs/24 hr aripiprazole [Abilify] 10 mg tablet 15 mg PO HS lamotrigine 200 mg tablet 200 mg PO HS diazepam 2 mg tablet 2 mg PO ONCE PRN (Reason: anxiety) Qty: 2 0RF Rx Instructions: Take 1 tablet once 30 to 60 minutes prior to procedure; if needed due to incomplete response, may take another tablet after 30 to 60 minutes. metformin 500 mg tablet extended release 24 hr 500 mg PO DAILY Qty: 30 2RF Follow-up/Referrals: Chris Saravia DO [Primary Care Provider] - Time of Disposition: 02:05
--- NOTE | 2024-04-05 01:54 | PC.NURSE ---
Pt rang the call light and stated she feels better and would like to leave. Pt informed that we cannot discharge her yet as more tests need to be ran, pt informed she must sign out AMA if she would like to leave. Dr. Moctezuma to pt's bedside to speak w/ pt. Pt informed of all risks associated with leaving. Pt states she still wishes to leave AMA. AMA form signed.
[2024-04-05 02:53] LABS: NT Pro B Type Natriuretic Pept 175 pg/mL (19.9-100)
== END 2024-04-05 02:07 | disposition left against medical advice (07) ==
PROVIDERS: Emergency Provider Emergency Medicine; PCP Family Medicine
DX: R07.9 Chest pain, unspecified (principal); R55 Syncope and collapse; R79.89 Other specified abnormal findings of blood chemistry; G20.A1 Parkinson's disease without dyskinesia, without mention of fluctuations; E78.5 Hyperlipidemia, unspecified; E55.9 Vitamin D deficiency, unspecified; F31.9 Bipolar disorder, unspecified; Z87.891 Personal history of nicotine dependence; Z90.710 Acquired absence of both cervix and uterus
CPT/HCPCS: 36415; 71045; 80053; 82948; 83690; 83880; 84484; 85025; 85610; 85730; 93005; 99284

== ENCOUNTER 2024-04-05 11:42 | Outpatient (CLI) | payer OTHER, SELFPAY ==
--- NOTE | ~2024-04-05 | MR_ITS ---
EXAMINATION: MR brain/brain stem wo con DATE: 04/05/2024 12:08 INDICATION: Migraine, unspecified, not intractable. TECHNIQUE: Magnetic resonance imaging (MRI) of the brain and brainstem was performed without intraven ous contrast. COMPARISON: Brain MRI 11/23/2012, head CT 11/16/2023 FINDINGS: There are scattered areas of nonspecific increased T2-weighted signal intensity in the cere bral white matter, which is within normal limits for the patient's age. There is no intracranial hemo rrhage, acute infarction, or abnormal intracranial mass lesion. The ventricles are normal in size. Th ere is mild mucosal thickening in the paranasal sinuses. The orbits are normal. The mastoid air cells are normal. IMPRESSION: 1. Normal aging brain. Reviewed, dictated and finalized at location A. CH MECHANIC IMPRESSION: 1. Normal aging brain.
== END 2024-04-05 11:43 | disposition home or self-care (01) ==
LOC: MICIMG 11:42
PROVIDERS: PCP Family Medicine; Visit Provider Family Medicine
DX: G43.909 Migraine, unspecified, not intractable, without status migrainosus (principal); R20.2 Paresthesia of skin
CPT/HCPCS: 70551

== ENCOUNTER 2024-04-08 12:20 | Emergency (ER) | payer OTHER, SELFPAY ==
--- NOTE | ~2024-04-08 | XR_ITS ---
EXAMINATION: XR chest 2V DATE: 04/08/2024 13:31 INDICATION: Weakness. Not feeling well. TECHNIQUE: PA and lateral views of the chest were obtained. COMPARISON: Chest radiograph dated 04/05/2024 FINDINGS: The lungs are clear with no focal airspace opacities, pulmonary edema, pleural effusion or pneumothor ax. The cardiomediastinal silhouette is normal. Thoracic spondylosis. IMPRESSION: 1. No acute cardiopulmonary disease. Reviewed, dictated and finalized at location B. ER EDUCATION INSTRUCTOR
[2024-04-08 12:22] VITALS: BP 153/91; PULSE 67; RESP 20; TEMP 36.6; O2SAT 100
[2024-04-08 12:28] LABS: Glucose Point of Care 73 mg/dl (65-105)
--- NOTE | 2024-04-08 12:34 | ECG_ITS ---
Test Date: 2024-04-08 14:27:11 Measurements Intervals [place] Rate: 57 P: 37 UT: 178 QRS: 12 QRSD: 87 T: 32 QT: 434 QTc: 423 Interpretive Statements SINUS BRADYCARDIA LEFT VENTRICULAR HYPERTROPHY CONSIDER INFERIOR INFARCT, AGE INDETERMINATE ABNORMAL ECG Compared to ECG 04/05/2024 00:18:38 HEART RATE HAS DECREASED Electronically Signed On 04-08-2024 14:33:03 COAL CONVEYOR OPERATOR by Ty Diaz D.O.
[2024-04-08 13:09] LABS: Basophils Absolute Auto 0.1 K/mm3 (0.0-0.1); Basophils Percent Auto 1.1 % (0.2-1.2); Eosinophils Absolute Auto 0.1 K/mm3 (0-0.3); Eosinophils Percent Auto 1.8 % (0-4.4); Hematocrit 44.8 % (37.0-47.0); Hemoglobin 14.5 g/dL (12.0-15.0); Immature Granulocyte Absolute 0.02 K/mm3 (0.00-0.031); Immature Granulocyte Percent A 0.4 % (0-0.5); Lymphocytes Absolute Auto 2.09 K/mm3 (0.9-3.2); Lymphocytes Percent Auto 37.5 % (18.3-44.2); Mean Corpuscular HGB Conc 32.4 g/dl (32-36); Mean Corpuscular Volume 92.6 fl (80-100); Mean Platelet Volume 10.7 fl (7.4-10.4); Monocytes Absolute Auto 0.4 K/mm3 (0.1-0.6); Monocytes Percent Auto 7.9 % (2.6-8.5); Neutrophils Absolute Auto 2.9 K/mm3 (1.3-6.7); Neutrophils Percent Auto 51.3 % (45.5-73.1); Platelet Count Result 195 k/mm3 (150-375); Red Blood Count 4.84 M/mm3 (4.2-5.4); Red Cell Distribution Width 13.2 % (11.5-14.5); White Blood Count 5.6 K/mm3 (4.5-10.0)
[2024-04-08 13:19] LABS: Alanine Aminotransferase 55 U/L (6-35); Albumin Level 4.6 g/dL (3.5-5.1); Alkaline Phosphatase 146 U/L (38-126); Anion Gap 7 mmol/L (4-12); Aspartate Amino Transferase 46 U/L (14-36); Bilirubin,Total 0.3 mg/dL (0.2-1.3); Blood Urea Nitrogen 17 mg/dL (7-17); Calcium 9.7 mg/dL (8.4-10.2); Carbon Dioxide 27 mmol/L (22-30); Chloride 105 mmol/L (98-107); Estimated CRCL calculation 77 ml/min; Estimated Glomerular Filt Rate > 60; Glucose 96 mg/dL (65-110); Potassium 4.1 mmol/L (3.4-5.0); Sodium 139 mmol/L (137-145)
[2024-04-08 13:46] LABS: Influenza A QL RT-PCR Negative (Negative); Influenza B QL RT-PCR Negative (Negative); RSV RNA, RT-PCR Negative (Negative); SARS-CoV-2 RNA PCR Negative (Negative)
[2024-04-08 14:28] VITALS: BP 170/87; PULSE 64; RESP 17; O2SAT 100
[2024-04-08 14:29] VITALS: PULSE 56
--- NOTE | 2024-04-08 14:57 | ED.GENADULT ---
HPI - General Adult General Chief complaint: Recheck/Abnormal Lab/Rx Stated complaint: lethargy, dizzy, does not check B.S. Time Seen by Provider: 04/08/24 14:23 History of Present Illness HPI narrative: 58-year-old female presents to the emergency department for evaluation for intermittent headache, but no headache now, intermittent dizziness and lightheadedness. Patient states that the symptoms started this morning. She states he has had intermittent chest pain. Related Data Home Medications Medication Instructions Recorded Confirmed lamotrigine 200 mg tablet 200 mg PO HS 02/05/20 03/24/24 aripiprazole 10 mg tablet (Abilify) 15 mg PO HS 03/24/24 03/24/24 Allergies Allergy/AdvReac Type Severity Reaction Status Date / Time fluconazole Allergy Rash Verified 04/08/24 12:22 trazodone Allergy Rash Verified 04/08/24 12:22 Review of Systems Review of Systems: All systems reviewed & are unremarkable except as noted in HPI and below PMFSH Past Medical History Medical History Bipolar disorder Chest pain Elevated troponin Hyperlipidemia [place] adverse reaction Parkinson's disease (tremor, stiffness, slow motion, unstable posture) Vitamin D deficiency Surgical History Surgical History History of hysterectomy History of repair of ACL History of tonsillectomy Family History Family History Mother No problems noted. Father Hyperlipidemia Arthritis Grandparent Arthritis Social History Social History Smoking packs per day: 1 Smoking cigarettes per day: 20.0 Years smoked: 10 Smoking pack-years: 10.00 Smoking status: Former smoker Tobacco type: cigarettes Second hand tobacco smoke exposure: Yes Alcohol intake: current Drinks per week: 6 Alcohol use details: social Substance use: current Substance use type: marijuana Do You Feel Safe in your Home?: Yes Lack of Transportation: No Lack of Food: Sometimes True Current Housing: I Have Housing Concerned About Future Housing: No Difficulty Paying Gas/Electric Bills: No Difficulty Paying for Meds: No Currently Unemployed: No Education: Bachelor's Degree Difficulty w/ Childcare or Family Care: No Living arrangements: with roommate(s) Occupation/Education: occupation Gender identity (if verbalized by the patient): Female Spiritual care concerns: No Exam Narrative: APPEARANCE: Well appearing, no pain, no distress, well-nourished. HEAD: normocephalic, atraumatic. EYES: PERRLA/EOMI, conjunctivae clear. NOSE: Normal no drainage EARS:TMS clear with good light reflex. THROAT: Pharynx clear, no exudate. NECK: Supple. No adenopathy, no masses. RESPIRATORY: Airway patent, respirations nonlabored. Clear to auscultation bilaterally, no rales, rhonchi, wheezing. CARDIOVASCULAR: Regular rate and rhythm without murmurs rubs or gallops. ABDOMINAL: Soft, nontender, nondistended, normal bowel sounds MUSCULOSKELETAL: Moves all extremities. Strength/ROM intact, No edema, No calf tenderness. NEURO: Alert. Cranial nerves II through XII intact. Good gait. Good coordination SKIN: Warm, dry. Normal Color Course Vital Signs Vital signs: Vital Signs Temperature 97.8 F 04/08/24 12:22 Pulse Rate 67 04/08/24 12:22 Respiratory Rate 20 04/08/24 12:22 Blood Pressure 153/91 H 04/08/24 12:22 Pulse Oximetry 100 04/08/24 12:22 Oxygen Delivery Room Air 04/08/24 12:22 Temperature 97.8 F 04/08/24 16:10 Pulse Rate 69 04/08/24 16:41 Respiratory Rate 17 04/08/24 16:41 Blood Pressure 133/67 04/08/24 16:41 Pulse Oximetry 100 04/08/24 16:41 Oxygen Delivery Room Air 04/08/24 12:22 Medical Decision Making [facility] Narrative Medical decision making narrative: 58-year-old female presents emergency department for evaluation for dizziness and dehydration. Patient's labs did not show any evidence of dehydration. Patient was treated with meclizine and did feel improved. Patient is afebrile with no leukocytosis and hemoglobin of 14.5. Patient had no acute abnormalities on her CMP patient's troponin was negative. UA showed no underlying evidence infection and patient was negative for influenza RSV and for COVID. On re-evaluation patient states she did feel improved. Concern for ACS. Patient's symptoms are consistent with vertigo. Patient may also have an underlying viral etiology. All questions concerns were addressed patient was comfortable with the plan for discharge and close follow-up. Differential Diagnosis Differential Diagnosis: Vertigo, ICS, dehydration, viral etiology Vital Signs Vital Signs: Vital Signs Temperature 97.8 F 04/08/24 12:22 Pulse Rate 67 04/08/24 12:22 Respiratory Rate 20 04/08/24 12:22 Blood Pressure 153/91 H 04/08/24 12:22 Pulse Oximetry 100 04/08/24 12:22 Oxygen Delivery Room Air 04/08/24 12:22 Temperature 97.8 F 04/08/24 16:10 Pulse Rate 69 04/08/24 16:41 Respiratory Rate 17 04/08/24 16:41 Blood Pressure 133/67 04/08/24 16:41 Pulse Oximetry 100 04/08/24 16:41 Oxygen Delivery Room Air 04/08/24 12:22 Lab Data Lab results reviewed: Yes I reviewed the patient's lab results. 04/08/24 13:04 04/08/24 13:04 Labs: Lab Results 04/08/24 04/08/24 04/08/24 Range/Units 12:25 13:04 14:53 WBC 5.6 (4.5-10.0) K/mm3 RBC 4.84 (4.2-5.4) M/mm3 Hgb 14.5 (12.0-15.0) g/dL Hct 44.8 (37.0-47.0) % MCV 92.6 (80-100) fl MCH 30.0 (26-34) pg MCHC 32.4 (32-36) g/dl RDW 13.2 (11.5-14.5) % Plt Count 195 (150-375) k/mm3 MPV 10.7 H (7.4-10.4) fl Immature Gran % (Auto) 0.4 (0-0.5) % Neut % (Auto) 51.3 (45.5-73.1) % Lymph % (Auto) 37.5 (18.3-44.2) % [place] % (Auto) 7.9 (2.6-8.5) % Eos % (Auto) 1.8 (0-4.4) % Baso % (Auto) 1.1 (0.2-1.2) % Lymph # (Auto) 2.09 (0.9-3.2) K/mm3 [place] # (Auto) 0.4 (0.1-0.6) K/mm3 Eos # (Auto) 0.1 (0-0.3) K/mm3 Baso # (Auto) 0.1 (0.0-0.1) K/mm3 Abs Immat Gran (auto) 0.02 (0.00-0.031) K/mm3 Absolute Neuts (auto) 2.9 (1.3-6.7) K/mm3 Absolute Nucleated RBC 0.000 (0.0-0.012) K/mm3 Nucleated RBC % 0.0 (0.0-0.2) % Sodium 139 (137-145) mmol/L Potassium 4.1 (3.4-5.0) mmol/L Chloride 105 (98-107) mmol/L Carbon Dioxide 27 (22-30) mmol/L Anion Gap 7 (4-12) mmol/L BUN 17 (7-17) mg/dL Creatinine 0.80 (0.7-1.0) mg/dL Estim Creat Clear Calc 77 ml/min Estimated GFR > 60 (59 - ) Glucose 96 (65-110) mg/dL POC Capillary Glucose 73 (65-105) mg/dl Calcium 9.7 (8.4-10.2) mg/dL Total Bilirubin 0.3 (0.2-1.3) mg/dL AST 46 H (14-36) U/L ALT 55 H (6-35) U/L Alkaline Phosphatase 146 H (38-126) U/L Troponin I 0.029 (0.000-0.034) ng/mL Total Protein 8.0 (6.3-8.2) g/dL Albumin 4.6 (3.5-5.1) g/dL Urine Color Yellow (Yellow) Urine Appearance Clear (Clear) Urine pH 5.5 (5.0-9.0) Ur Specific [place] 1.012 (1.001-1.035) Urine Protein Negative (Negative) mg/dL Urine Glucose (UA) Negative (Negative) mg/dL Urine Ketones Negative (Negative) mg/dL Ur Blood (Man) Negative (Negative) Urine Nitrate Negative (Negative) Urine Bilirubin Negative (Negative) Urine Urobilinogen 0.2 (<2.0) mg/dL Leukocyte Esterase Rfl Negative (Negative) EAMON/UL Influenza A (RT-PCR) Negative (Negative) Influenza B (RT-PCR) Negative (Negative) RSV (RT-PCR) Negative (Negative) SARS-CoV-2 RNA (RT-PCR) Negative (Negative) Imaging Data Radiologist's impression: Impressions Chest X-Ray 04/08/24 13:51 IMPRESSION: 1. No acute cardiopulmonary disease. Discharge Plan Discharge Clinical Impression: Dizziness Patient Disposition: Home, Self-Care Condition: Stable Instructions: Antibiotic Form, Vertigo (ED), Fatigue (ED) Additional Instructions: Have close follow-up with your primary care physician. Meclizine as needed for vertigo. If you have any worsening symptoms and please call or return to the emergency department. Prescriptions: New meclizine 25 mg tablet 25 mg PO BID PRN (Reason: dizziness) Qty: 20 0RF No Action sumatriptan succinate 50 mg tablet See Rx Instructions PO .COMPLEX Qty: 30 1RF Rx Instructions: Take 1 tablet at onset of headache; if no relief may repeat 1 tablet after at least 2 hours; max = 4 tabs/24 hr aripiprazole [Abilify] 10 mg tablet 15 mg PO HS lamotrigine 200 mg tablet 200 mg PO HS diazepam 2 mg tablet 2 mg PO ONCE PRN (Reason: anxiety) Qty: 2 0RF Rx Instructions: Take 1 tablet once 30 to 60 minutes prior to procedure; if needed due to incomplete response, may take another tablet after 30 to 60 minutes. metformin 500 mg tablet extended release 24 hr 500 mg PO DAILY Qty: 30 2RF Follow-up/Referrals: Chris Saravia DO [Primary Care Provider] -
[2024-04-08 15:00] LABS: Add Urine Microscopic? NO; Appearance Urine Clear (Clear); Bilirubin Urine Negative (Negative); Blood Urine Negative (Negative); Color Urine Yellow (Yellow); Glucose Urine UA Negative (Negative); Ketones Urine Negative (Negative); Leukocyte Esterase Ur Negative LEU/UL (Negative); Nitrate Urine Negative (Negative); Protein Urine Negative (Negative); Specific Grav Ur 1.012 (1.001-1.035); Urobilinogen Urine 0.2 mg/dL (<2.0); pH Urine 5.5 (5.0-9.0)
[2024-04-08] MEDS: MECLIZINE HCL 25 MG TABLET PO (16:07)
[2024-04-08] MEDS: hydrALAZINE HCL 20 MG/ML VIAL 10 MG IV PUSH (16:08)
[2024-04-08] MEDS: KETOROLAC 15 MG/ML VIAL (*BKC) IV PUSH (16:08)
[2024-04-08 16:10] VITALS: BP 151/86; PULSE 62; RESP 16; TEMP 36.6; O2SAT 100
[2024-04-08 16:38] LABS: Troponin I 0.029 ng/mL (0.000-0.034)
[2024-04-08 16:41] VITALS: BP 133/67; PULSE 69; RESP 17; O2SAT 100
== END 2024-04-08 17:20 | disposition home or self-care (01) ==
PROVIDERS: Physician Assistant; Emergency Provider Emergency Medicine; PCP Family Medicine
DX: R42 Dizziness and giddiness (principal); Z20.822 Contact with and (suspected) exposure to COVID-19; G20.C Parkinsonism, unspecified; E78.5 Hyperlipidemia, unspecified; E55.9 Vitamin D deficiency, unspecified; F31.9 Bipolar disorder, unspecified; Z87.891 Personal history of nicotine dependence; Z90.710 Acquired absence of both cervix and uterus; Z79.84 Long term (current) use of oral hypoglycemic drugs; Z79.899 Other long term (current) drug therapy; R00.1 Bradycardia, unspecified; R94.31 Abnormal electrocardiogram [ECG] [EKG]; I51.7 Cardiomegaly
CPT/HCPCS: 36415; 71046; 80053; 81003; 82948; 84484; 85025; 87637; 93005; 96374; 96375; 99284; A9270; J0360; J1885